=== PATIENT | male | born 1995 | race Caucasian/White ===

== ENCOUNTER 2016-06-02 14:23 | Inpatient (IN) | payer OTHER ==
[~2016-06-02] VITALS: Ht 185.4 cm; Wt 62.1 kg
[~2016-06-02 14:23] MED LIST: ACET-2869 GT; ACET-8331 GT; CRAN450C GT; HYDR-3229 GT; MAGN400S60 PO; METO-460 GT; METO100T98 GT; MULT5SOL7 GT; [UNRECOGNIZED DRUG - CODE] GT
--- NOTE | 2016-06-02 14:24 | NUR ---
Patient RACHANA ACLS accompanied by Shae MANTILLA from [facility], transferred to bed 1. RN evaluating patient at bedside.
[2016-06-02 14:29] VITALS: BP 134/96
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
[2016-06-02] MEDS ORDERED: DEXTROSE 5% IV ONE (15:05)
[2016-06-02] MEDS ORDERED: PIPERACILLIN/TAZOBACTAM 3.375 GM in DEXTROSE 5% 50 ML IV ONE (15:05)
[2016-06-02] MEDS ORDERED: VANCOMYCIN IV ONE (15:05)
[2016-06-02] MEDS ORDERED: ALBUTEROL 0.083% 2.5 MG/3 ML NEBU INH ONE (15:05)
[2016-06-02 15:14] LABS: MEAN CORPUSCULAR HEMOGLOBIN 31 pg (27-31); MEAN CORPUSCULAR HGB CONC 33 g/dL (33-37); MEAN CORPUSCULAR VOLUME 94 fL (80-94); PLATELET COUNT (AUTO) 712 K/uL (140-450); RED BLOOD CELL COUNT(AUTO) 2.56 MIL/uL (4.20-6.10); RED CELL DISTRIBUTION WIDTH 14.5 % (11.6-13.7); WHITE BLOOD COUNT (AUTO) 25.9 K/uL (4.8-10.8)
[2016-06-02 15:16] LABS: BLOOD GAS PCO2 46.4 mmHg (20-50); BLOOD GAS PH 7.397 (7.35-7.45)
[2016-06-02 15:17] LABS: BLOOD GAS BASE EXCESS 2.7 mmol/L (-2.0-2.0); BLOOD GAS HCO3 27.9 mmol/L; BLOOD GAS PO2 53.8 mmHg
[2016-06-02 15:18] LABS: BLOOD GAS O2 SAT% 84.4 % (92.0-98.5)
[2016-06-02 15:24] LABS: ANION GAP 8.4 (8-16); CALCIUM 8.6 mg/dL (8.5-10.1); CARBON DIOXIDE 32.2 mmol/L (21-32); CREATININE 0.6 mg/dL (0.6-1.3); POTASSIUM 4.6 mmol/L (3.5-5.1)
[2016-06-02 15:26] LABS: BAND % (MANUAL) 20 % (0-8); HYPOCHROMASIA 2+; INR 1.2 (0.8-1.2); LYMPHOCYTES % (MANUAL) 9 % (20-46); MONOCYTES % (MANUAL) 6 % (5-12); NEUTROPHILS % (MANUAL) 65 (43-65); PLATELET ESTIMATE INCREASED; PROTHROMBIN TIME 11.9 secs (10.8-13.4)
[2016-06-02 15:31] LABS: ALBUMIN 1.6 g/dL (3.4-5.0); TOTAL BILIRUBIN 0.4 mg/dL (0.0-1.0); TOTAL PROTEIN, SERUM 7.3 g/dL (6.4-8.2)
[2016-06-02 15:32] LABS: LACTIC ACID 1.9 mmol/L (0.4-2.0)
[2016-06-02] MEDS ORDERED: PIPERACILLIN/TAZOBACTAM 3.375 GM VIAL IV ONE ×2 (16:12→22:27)
--- NOTE | 2016-06-02 16:15 | NUR ---
[facility] NO REDNESS AROUND STOMA. TRACH GAUZE AND TRACH TIES ARE NOT SOILED.
--- NOTE | 2016-06-02 16:24 | NUR ---
URINE COLLECTED AND RECEIVED BY LAB
[2016-06-02 16:47] LABS: APPEARANCE,URINE CLEAR (CLEAR); BILIRUBIN,URINE NEGATIVE (NEGATIVE); BLOOD, URINE TRACE-I (NEGATIVE); COLOR,URINE YELLOW (YELLOW); LEUKOCYTE ESTERASE ,URINE NEGATIVE (NEGATIVE); NITRITE, URINE NEGATIVE (NEGATIVE); PROTEIN,URINE TRACE (NEGATIVE); UGLUCOSE NEGATIVE (NEGATIVE); UROBILINOGEN,URINE 0.2 EU/dL (0.2 - 1)
[2016-06-02 16:54] LABS: BACTERIA,URINE FEW /HPF (None Seen); WBC,URINE 0-3 /HPF (0-5)
[2016-06-02 16:55] LABS: CALCIUM OXALATE CRYSTALS,UR 0-10 /HPF (None Seen); SQUAMOUS EPITHELIAL CELL,UR 0-3 /LPF (0-3 (FEW))
[2016-06-02] MEDS ORDERED: VANCOMYCIN 1,000 MG VIAL ONE (17:46)
--- NOTE | 2016-06-02 17:51 | NUR ---
inner cannula clean trach care done
[2016-06-02] MEDS ORDERED: MORPHINE SULFATE 2 MG/ML SYR IVP PRN (19:30)
[2016-06-02] MEDS ORDERED: LORazepam 2 MG/ML VIAL IVP PRN (19:30)
[2016-06-02] MEDS ORDERED: ACETAMINOPHEN 325 MG TAB PO PRN (19:30)
[2016-06-02] MEDS ORDERED: ONDANSETRON 4 MG/2 ML VIAL IVP PRN (19:30)
--- NOTE | 2016-06-02 19:30 | NUR ---
REPORT RECEIVED FROM DAY SHIFT
[2016-06-02] MEDS ORDERED: hydrALAZINE 10 MG TAB GT PRN (19:40)
[2016-06-02] MEDS ORDERED: MAGNESIUM HYDROXIDE 2400 MG/30 ML UDC PO PRN (19:40)
[2016-06-02] MEDS ORDERED: HYDROcodone/APAP 5/325 MG 1 TAB TAB GT PRN (19:40)
[2016-06-02] MEDS ORDERED: ACETAMINOPHEN 325 MG GT PRN (19:40)
[2016-06-02] MEDS ORDERED: VANCOMYCIN PER PHARMACY MC PRN (19:40)
[2016-06-02] MEDS ORDERED: NACL 0.9% 1,000 ML IV ONE ×2 (19:45)
[2016-06-02] MEDS ORDERED: ACETAMINOPHEN 650 MG SUPP RC ONE (20:00)
--- NOTE | 2016-06-02 20:45 | NUR ---
Patient will be admitted to care of DR TRIPP. Admited to ICU. Will go to rooM 7. Belongings list completed. Report to HUMZA DAVIS.
--- NOTE | 2016-06-02 20:50 | NUR ---
Admitted from E. with chief complaint of INCREASE RESPIRATORY DISTRESS. A 21 y/o, Male. RESPOND ONLY TO DEEP PAIN STIMULI. INITIAL ASSESSMENT DONE. PT IS USING HIS ACCESSORY MUSCLE TO BREATHE. ON TRACH TO T-PIECE. PT HAS G-TUBE. PLACEMENT AND PATENCY ARE CONFIRMED. PT. HAS GRAHAM CATHETER AND DRAINING WELL. PT IS CONTRACTED, AND UNABLE TO MOVE EXTREMITIES. PT HAS PRESSURE ULCER ON SACRAL AREA. PLAN OF CARE REVIEWED TO PT AND FAMILY AT BEDSIDE AND VERBALIZED UNDERSTANDING AND NEED TO BE REINFORCED. oriented to call light, bed, phone,television, bathroom, smoking policy, visiting hours, procedures, ID bracelet on. Belongings list checked. WILL CONTINUE TO MONITOR.
--- NOTE | 2016-06-02 21:10 | NUR ---
APPLY COOLING BLANKET TO PT D/T PT HAS A FEVER. TEMP. IS 101.2. AND TOLERATED WELL. WILL CONTINUE TO MONITOR.
[2016-06-02] MEDS: NACL 0.9% 1,000 ML IV SCH (22:05)
[2016-06-02] MEDS: METOPROLOL 50 MG TAB GT SCH (22:05)
[2016-06-02] MEDS: PIPERACILLIN/TAZOBACTAM 3.375 GM in DEXTROSE 5% 50 ML IV SCH ×2 (22:06→22:25)
[2016-06-02] MEDS: LEVOFLOXACIN 750 MG/D5W PREMIX 150 ML IV SCH (22:06)
--- NOTE | 2016-06-02 22:40 | NUR ---
PT IS OFF FROM COOLING BLANKET D/T PT HAS NO LONGER A FEVER WITH TEMP OF 97.6. WILL CONTINUE TO MONITOR
--- NOTE | 2016-06-02 23:43 | NUR ---
Note ruthy in EDM - 06/02/16 at 2344 by JERAMIE Patient will be admitted to care of DR TRIPP. Admited to ICU. Will go to room 7. Belongings list completed. Report to HUMZA DAVIS.
[2016-06-02] MEDS: METOCLOPRAMIDE 10 MG TAB GT SCH (23:49)
[2016-06-02] MEDS: ALBUTEROL 0.083% 2.5 MG/3 ML NEBU IH PRN (23:53)
[2016-06-03] VITALS (12 sets, daily range): BP systolic 132–174; BP diastolic 76–97
[2016-06-03] MEDS ORDERED: methylPREDNISolone SS 40 MG/ML VIAL IVP PRN (00:15)
[2016-06-03] MEDS ORDERED: VANCOMYCIN 1,000 MG VIAL ONE (01:23)
[2016-06-03] MEDS ORDERED: VANCOMYCIN 750 MG in DEXTROSE 5% 250 ML IV SCH (02:00)
--- NOTE | 2016-06-03 03:00 | NUR ---
PT STILL USING HIS ACCESSORY MUSCLE IN BREATHING. CALLED DR. BURNETT AND NOTIFIED AND NEW ORDERS WERE GIVEN (PLS. SEE CPOE). NEW ORDERS NOTED AND CARRIED OUT. WILL CONTINUE TO MONITOR.
[2016-06-03] MEDS: NACL 0.9% 1,000 ML IV SCH ×3 (03:29→19:29)
[2016-06-03] MEDS: PIPERACILLIN/TAZOBACTAM 3.375 GM in DEXTROSE 5% 50 ML IV SCH (04:19)
--- NOTE | 2016-06-03 05:00 | NUR ---
AM CARE RENDERED. BED LINEN CHANGED. REPOSITIONED PATIENT. KEPT CLEAN AND DRY. CALL LIGHT WITHIN REACH. WILL CONTINUE TO MONITOR.
[2016-06-03] MEDS: METOCLOPRAMIDE 10 MG TAB GT SCH ×4 (06:01→23:53)
--- NOTE | 2016-06-03 07:14 | NUR ---
PT HAS NO S/S OF ANY DISCOMFORT. PLAN OF CARE ENDORSED TO HARDEEP DAVIS AT BEDSIDE FOR CONTINUITY OF CARE
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
[2016-06-03 07:30] LABS: ALBUMIN 1.5 g/dL (3.4-5.0); CALCIUM 8.8 mg/dL (8.5-10.1); CARBON DIOXIDE 27.8 mmol/L (21-32); CREATININE 0.5 mg/dL (0.6-1.3); MAGNESIUM 1.9 mg/dL (1.8-2.4); POTASSIUM 4.8 mmol/L (3.5-5.1); TOTAL BILIRUBIN 0.3 mg/dL (0.0-1.0); TOTAL PROTEIN, SERUM 7.4 g/dL (6.4-8.2)
[2016-06-03] MEDS: ALBUTEROL 0.083% 2.5 MG/3 ML NEBU IH PRN ×2 (07:42→12:48)
[2016-06-03 07:43] LABS: HEMATOCRIT 24.5 % (36-52); HEMOGLOBIN 8.1 g/dL (12.0-18.0); MEAN CORPUSCULAR HEMOGLOBIN 31 pg (27-31); MEAN CORPUSCULAR HGB CONC 33 g/dL (33-37); MEAN CORPUSCULAR VOLUME 94 fL (80-94); PLATELET COUNT (AUTO) 735 K/uL (140-450); RED BLOOD CELL COUNT(AUTO) 2.61 MIL/uL (4.20-6.10); RED CELL DISTRIBUTION WIDTH 14.9 % (11.6-13.7); WHITE BLOOD COUNT (AUTO) 24.4 K/uL (4.8-10.8)
[2016-06-03 08:00] LABS: BAND % (MANUAL) 7 % (0-8); BASOPHILS % (MANUAL) 0 % (0-2); EOSINOPHILS % (MANUAL) 1 % (0-4); LYMPHOCYTES % (MANUAL) 2 % (20-46); MONOCYTES % (MANUAL) 2 % (5-12); NEUTROPHILS % (MANUAL) 88 (43-65); PLATELET ESTIMATE INCREASED
--- NOTE | 2016-06-03 08:00 | NUR ---
PT TURNED AND REPOSITIONED. ORAL CARE GIVEN.
[2016-06-03] MEDS: METOPROLOL 50 MG TAB GT SCH ×2 (09:44→21:16)
--- NOTE | 2016-06-03 10:00 | NUR ---
PT TURNED AND REPOSITIONED.
[2016-06-03] MEDS: VANCOMYCIN 1GM/DEXT 5% PREMIX 200 ML IV SCH ×2 (10:07→17:41)
[2016-06-03] MEDS: ENOXAPARIN 40 MG/0.4 ML SYR SUBQ SCH (10:10)
[2016-06-03] MEDS: ASCORBIC ACID 500 MG TAB GT SCH (10:11)
[2016-06-03] MEDS: MULTIVITAMIN 5 ML ORASYR GT SCH (10:12)
--- NOTE | 2016-06-03 12:00 | NUR ---
PT TURNED AND REPOSITIONED. ORAL CARE GIVEN WITH VAP KIT.
[2016-06-03] MEDS: PIPER/TAZO 3.375GM/D5W PREMIX 50 ML IV SCH ×2 (12:26→20:25)
--- NOTE | 2016-06-03 13:11 | NUR ---
DECREASED FI02 TO .40 RN JOHN AWARE
--- NOTE | 2016-06-03 13:40 | NUR ---
CALLED PT'S MOTHER. PER FAMILY MEMBER THAT ANSWERED PHONE, SHE IS ON HER WAY TO THE HOSPITAL. WHEN PT'S MOTHER ARRIVED TO HOSPITAL, RN AND TESTER [employer] EXPLAINED TO HER THAT DR WANTS A CT CHEST WITH CONTRAST FOR PNA. PT'S MOTHER VERBALIZED UNDERSTANDING AND SIGNED CONSENT.
--- NOTE | 2016-06-03 14:00 | NUR ---
PT OFF FLOOR FOR CT. Addendum: 06/03/16 at 1618 by Maureen Morin RN TIME WAS 1430
--- NOTE | 2016-06-03 15:00 | NUR ---
PT BACK FROM CT. RECONNECTED TO BEDSIDE MONITOR. RT AT BEDSIDE.
--- NOTE | 2016-06-03 15:18 | NUR ---
[address] ON 1LPM T- BAR TRANSPORTED BACK TO ICU 7 T-BAR 10LPM O2 TOOK PT OFF COOL AERSOL AT THIS TIME PTS SECRETIONS BUILDING UP RN AWARE
--- NOTE | 2016-06-03 16:00 | NUR ---
LINEN CHANGED, BED BATH GIVEN. PT TURNED AND REPOSITIONED FOR COMFORT. ORAL CARE GIVEN.
--- NOTE | 2016-06-03 17:22 | NUR ---
DR. CORLEY NOTIFIED OF CT CHEST RESULTS. ORDERS RECEIVED FOR DR. DIAMOND CONSULTATION FOR CHEST TUBE INSERTION. PAGING DR. DIAMOND.
--- NOTE | 2016-06-03 17:23 | NUR ---
PAGED DR. DIAMOND.
--- NOTE | 2016-06-03 17:30 | NUR ---
DR DIAMOND PAGED BY RYAN SOLIMAN.
--- NOTE | 2016-06-03 17:55 | NUR ---
INNER CANULA CLEANED AND REPLACED TRACH CARE DONE
--- NOTE | 2016-06-03 17:56 | NUR ---
RECEIVED CALLBACK FROM DR. DIAMOND. READ CT CHEST WITH CONTRAST RESULTS TO DR DIAMOND AND UPDATED MD THAT PATIENT IS IN RESPIRATORY DISTRESS, DESATS TO 70S, AND HAS INCREASED WORK OF BREATHING. PER DR. DIAMOND, HE WILL NOT BE ABLE TO DO SURGERY RIGHT NOW. EITHER LATE TONIGHT OR TOMORROW.
--- NOTE | 2016-06-03 18:00 | NUR ---
CALLED PT'S MOTHER FOR VERBAL CONSENT OF LEFT CHEST TUBE INSERTION. TRANSLATED IN BELARUSIAN BY SVETLANA HERNANDEZ MENAGERIE SUPERINTENDENT. VERBAL CONSENT WITNESSED BY NIALL RN.
--- NOTE | 2016-06-03 18:30 | NUR ---
PT TURNED AND REPOSITIONED FOR COMFORT. WILL CONTINUE TO MONITOR.
--- NOTE | 2016-06-03 19:15 | NUR ---
RECEIVED REPORT FROM DAY SHIFT RYAN MEIER. FULL CODE, NO CLEANER OPERATOR. TRACHEOSTOMY TO T-PIECE AT 10LPM. PERIPHERAL IV G20 ON RIGHT ARM. G-TUBE INTACT TO START TUBE FEEDING. GRAHAM CATHETER DRAINING TO YELLOWISH URINE OUTPUT. Addendum: 06/04/16 at 0024 by Francesca Joyce RN TYPO-ERROR - RECEIVED PATIENT ON CLEANER OPERATOR. IVF RUNNING NS 125 ML/HR. WITH ABDOMINAL OLD SCAR. WITH SACRAL ULCER OPENED TO AIR. 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 SKIN DIAPHORETIC. UNABLE TO FOLLOW COMMANDS. RESPONDS TO DEEP PAIN.
--- NOTE | 2016-06-03 19:15 | NUR ---
REPORT GIVEN TO RYAN PIPER.
--- NOTE | 2016-06-03 19:21 | NUR ---
PT'S MOTHER AT BEDSIDE SIGNED FOR CONSENT OF LEFT CHEST TUBE INSERTION.
--- NOTE | 2016-06-03 20:00 | NUR ---
VAP ORAL KIT GIVEN ASSISTED BY SUCTIONING. REPOSITIONED PATIENT.
--- NOTE | 2016-06-03 21:00 | NUR ---
GASTROSTOMY TUBE FLUSHED AND PATENT. TUBE FEEDING OF NUTREN PULMONARY AT 25 ML/HR, WATER FLUSH 50 ML Q6H PER GASTROSTOMY TUBE STARTED ORDERED.
[2016-06-03] MEDS: LEVOFLOXACIN 750 MG/D5W PREMIX 150 ML IV SCH (21:16)
--- NOTE | 2016-06-03 22:00 | NUR ---
REPOSITIONED PATIENT. NO SIGNS OF DISCOMFORT AT THIS TIME. BED IN LOW POSITION.
--- NOTE | 2016-06-03 23:59 | NUR ---
VAP ORAL KIT GIVEN ASSISTED WITH SUCTIONING. REPOSITIONED PATIENT.
[2016-06-04] VITALS (12 sets, daily range): BP systolic 118–159; BP diastolic 68–99
[2016-06-04] MEDS: VANCOMYCIN 1GM/DEXT 5% PREMIX 200 ML IV SCH ×3 (01:06→18:50)
--- NOTE | 2016-06-04 01:50 | NUR ---
REPOSITIONED PATIENT. NO RESIDUAL VIA GASTROSTOMY TUBE. BED IN LOW POSITION.
--- NOTE | 2016-06-04 03:58 | NUR ---
ORAL CARE GIVEN WITH VAP ORAL KIT ASSISTED WITH SUCTIONING. REPOSITIONED PATIENT. SUCTIONED SECRETIONS. BED IN LOW POSITION. ASPIRATION PRECAUTION.
[2016-06-04] MEDS: PIPER/TAZO 3.375GM/D5W PREMIX 50 ML IV SCH ×3 (04:10→20:53)
[2016-06-04] MEDS: ALBUTEROL 0.083% 2.5 MG/3 ML NEBU IH PRN ×2 (04:21→08:32)
--- NOTE | 2016-06-04 05:00 | NUR ---
TRACH CARE DONE. INCREASED TO 12L 60% DUE TO DESAT.
--- NOTE | 2016-06-04 05:00 | NUR ---
OXYGEN DESATURATION NOTED TO 70% WHILE DOING TRACH CARE BY THE RT ON THE BEDSIDE. OXYGEN INCREASED TO 12LPM AEROSOL.
--- NOTE | 2016-06-04 05:00 | NUR ---
TUBE FEEDING HELD ORDERED.
[2016-06-04 05:51] LABS: HEMATOCRIT 22.7 % (36-52); HEMOGLOBIN 7.7 g/dL (12.0-18.0); MEAN CORPUSCULAR HEMOGLOBIN 31 pg (27-31); MEAN CORPUSCULAR HGB CONC 34 g/dL (33-37); MEAN CORPUSCULAR VOLUME 93 fL (80-94); RED BLOOD CELL COUNT(AUTO) 2.45 MIL/uL (4.20-6.10); RED CELL DISTRIBUTION WIDTH 14.9 % (11.6-13.7)
[2016-06-04 05:57] LABS: WHITE BLOOD COUNT (AUTO) 35.3 K/uL (4.8-10.8)
[2016-06-04 05:58] LABS: PLATELET COUNT (AUTO) 832 K/uL (140-450)
--- NOTE | 2016-06-04 06:00 | NUR ---
AM CARE GIVEN. BATHING ASSISTED WITH BOTTLE FILLER DEE. ORAL CARE GIVEN. ALL LINENS AND GOWN CHANGED.
[2016-06-04 06:11] LABS: ANION GAP 8.1 (8-16); CALCIUM 9.2 mg/dL (8.5-10.1); CARBON DIOXIDE 31.4 mmol/L (21-32); CREATININE 0.6 mg/dL (0.6-1.3); POTASSIUM 4.5 mmol/L (3.5-5.1)
--- NOTE | 2016-06-04 06:16 | NUR ---
DR CORLEY NOTIFIED WBC 35.5,PLAT 832 , SEE ORDER ,HE WANT TO DO BRONCHOSCOPY TODAY AT 1000- 1100 RT "MARTI " NOTIFIED.
[2016-06-04] MEDS: METOCLOPRAMIDE 10 MG TAB GT SCH ×3 (06:42→18:47)
[2016-06-04 06:54] LABS: BAND % (MANUAL) 6 % (0-8); LYMPHOCYTES % (MANUAL) 7 % (20-46); MONOCYTES % (MANUAL) 4 % (5-12); NEUTROPHILS % (MANUAL) 83 (43-65)
[2016-06-04 06:55] LABS: HYPOCHROMASIA 1+; PLATELET ESTIMATE INCREASED; TOXIC GRANULATION 1+
--- NOTE | 2016-06-04 07:10 | NUR ---
PATIENT REPORT GIVEN TO DAY SHIFT RN JOURDAN.
--- NOTE | 2016-06-04 07:30 | NUR ---
RECEIVE REPORT VERONIQUE RN PT HAS TRACH TO T PEICE O2 SAT 99%.SKIN JUAN WARM TO TOUCH IV FLUID HAS# 29 ON RT ARM , GT FEEDING ON HOLD DUE TO PROCEDURE , GRAHAM CATH DRAIN OMAR URINE WITH SEDAMEN.
--- NOTE | 2016-06-04 07:30 | NUR ---
ENDORSED CARE TO RYAN PIPER. PT IN STABLE CONDITION.
[2016-06-04] MEDS: ASCORBIC ACID 500 MG TAB GT SCH (08:42)
[2016-06-04] MEDS: MULTIVITAMIN 5 ML ORASYR GT SCH (08:42)
[2016-06-04] MEDS: METOPROLOL 50 MG TAB GT SCH ×2 (08:42→20:59)
--- NOTE | 2016-06-04 08:55 | NUR ---
PATIENT HAS BEEN SCREENED AND CATEGORIZED HIGH NUTRITION RISK. PATIENT WILL BE SEEN WITHIN 1-2 DAYS OF ADMISSION. 06/03/16 - 06/04/16 HARSHAD MALDONADO MBA, RD
[2016-06-04] MEDS: ENOXAPARIN 40 MG/0.4 ML SYR SUBQ SCH (09:00)
--- NOTE | 2016-06-04 09:30 | NUR ---
THE CHEST TUBE CONNECTED TO OCEAN SUCTION [facility] THE WATER SEAL CHEST DRAINAGE ,NOT CONNECT TO SUCTION AT THE TIME ONLY TO GRAVITY DRAINAGE N
--- NOTE | 2016-06-04 09:30 | NUR ---
DR. Jensen DIAMOND INSERTED CHEST TUBE ON LEFT SIDE OF THE CHEST WITH ESTIMATE BLOOD LOST ABOUT 5ML. THE CHEST TUBE
[2016-06-04] MEDS ORDERED: LIDOCAINE 1% 50 ML ONE (09:59)
--- NOTE | 2016-06-04 10:03 | NUR ---
RESPONDED TO ICU-7 STAT Jensen GARCIA, ALMAZ; DEVIN WILKERSONP
--- NOTE | 2016-06-04 10:05 | NUR ---
POST LEFT CHEST TUBE INSERTION BY DR. DIAMOND PATIENT DESATURATION TO 60'S AMBU BAG TO TRACH X 10 MINS WITH SUPPLEMENTAL OXYGEN AT 100% BAG DEPRESSION EVERY 6 SECONDS INTERMITTENT SUCTION X 2 FOR SMALL TO MODERATE THIN PALE YELLOW SECRETIONS SATURATION INCREASING TO 96%-97% DEVIN CHEWP AND DEVIN WILKERSONP AT BEDSIDE
--- NOTE | 2016-06-04 10:20 | NUR ---
RECEIVED CALL FROM LAB PT HAS MRSA IN HIS NARES DR CORLEY NOTIFIED.
[2016-06-04] MEDS ORDERED: LIDOCAINE 1% 500 MG/50 ML VIAL INJ SCH (10:30)
--- NOTE | 2016-06-04 10:30 | NUR ---
THE CHEST TUBE DRAIN 2000 ML OF YELLOW FLUID WITH THIN PINK WITH IN ONE HOUR .
--- NOTE | 2016-06-04 10:40 | NUR ---
CHANGED TO 2ND WATER SEAL CHEST DRAINAGE CONNECTED TO LOW SUCTION.
--- NOTE | 2016-06-04 11:00 | NUR ---
BRONCHOSCOPY DONE AT BED SIDE BY DR CORLEY DID NOT HAVE GOOD RESULT.
--- NOTE | 2016-06-04 11:01 | NUR ---
06/04/16 RD INITIAL ASSESSMENT COMPLETED PLEASE REFER TO NUTRITION ASSESSMENT UNDER CARE ACTIVITY FOR ESTIMATED NUTRITIONAL NEEDS. RD RECOMMENDATIONS: 1- WHEN PT IS MEDICALLY CLEARED AGAIN FOR TF, RECOMMEND NUTREN PULMONARY @60MLS/HR (PROVIDES 2160KCALS, 98G PROTEIN AND MEETS 100% OF NEEDS). START TF @30MLS/HR AND ADVANCE, TOLERATED, BY 10MLS/HR Q8HRS TO REACH GOAL RATE OF 60MLS/HR. 2- RD F/U 2-3 DAYS; HIGH RISK HARSHAD MALDONADO MBA, RD
[2016-06-04] MEDS ORDERED: fentaNYL 0.05 MG/ML VIAL IVP SCH (11:10)
--- NOTE | 2016-06-04 11:30 | NUR ---
BRONCHOSCOPY ASSIST WITH DR. SARAN BURNETT RCP'S Jensen GARCIA RCP AND Ruperto BARAJAS, AT BEDSIDE
--- NOTE | 2016-06-04 12:00 | NUR ---
VISIT BY AUNT AND UNCLE AT BED SIDE.
[2016-06-04] MEDS: NACL 0.9% 1,000 ML IV SCH ×3 (13:30→19:29)
[2016-06-04] MEDS: ALBUTEROL SULFATE/IPRATROPIU 3 ML SOL IH SCH ×2 (13:31→19:19)
--- NOTE | 2016-06-04 13:32 | NUR ---
AWAKE COOL AEROSOL TO TRACH AT 60%/12/PM ON AND FUNCTIONING WELL BREATH SOUNDS COARSE RHONCHI BILATERAL WITH GOOD CHEST RISE PRE AND POST OXYGENATION FOR SUCTIONING DEEP TRACHEAL SUCTION FOR LARGE THIN PALE YELLOW SECRETIONS AIRWAY PATENT HHN THERAPY GIVEN ORDERED TOLERATED WELL WITHOUT INCIDENT
[2016-06-04] MEDS ORDERED: MUPIROCIN 2% OINT 22 GM TUBE TP ONE (15:10)
[2016-06-04] MEDS: CHLORHEXADINE GLUC 2% CLOTH TP SCH (15:30)
[2016-06-04 17:15] LABS: APPEARANCE,SPUN,BODY FLUID HAZY (CLEAR); APPEARANCE,UNSPUN,BODY FLUID CLOUDY (CLEAR); COLOR,BODY FLUID YELLOW (LT YELLOW); GLUCOSE,BODY FLUID 0 mg/dL; MONONUCLEAR, BODY FLUID 10 %; POLYNUCLEAR, BODY FLUID 90 %; RBC, BODY FLUID 1064 /cu. mm.; SPECIMENTYPE,BODY FLUID PLEURAL; TOTAL VOLUME,BODY FLUID 2000 mL; WBC, BODY FLUID 878 /cu. mm.
[2016-06-04 17:16] LABS: GLUCOSE,PLEURAL FLUID 0
[2016-06-04 17:17] LABS: TOTAL PROTEIN,PLEURAL FLUID 1.4
[2016-06-04 17:19] LABS: PH,PLEURAL FLUID 7.5
--- NOTE | 2016-06-04 19:25 | NUR ---
RECEIVED REPORT FROM DAY SHIFT RN JOURDAN. ON KNIFEMAN, FULL CODE. AROUSABLE TO DEEP PAIN, UNABLE TO FOLLOW COMMANDS. AEROSOL TO TRACH AT 40% PER GERALDINE RT ON THE BEDSIDE. PERIPHERAL IV ON RIGHT ARM G20 RUNNING IVF OF NS AT 125ML/HR VIA IV PUMP. CHEST TUBE IN PLACE ON LOW INTERMITTENT SUCTION. GASTROSTOMY TUBE INTACT, NO RESIDUAL, RUNNING TUBE FEEDING OF NUTREN PULMONARY AT 25ML/HR, WATER FLUSH 50 ML Q6H VIA FEEDING PUMP. GRAHAM CATHETER DRAINING TO YELLOWISH URINE OUTPUT. WITH ABDOMINAL SCAR HEALED. WITH SACRAL ULCER STAGE 2 OPENED TO AIR, NO DRESSING. 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 SCD ON BOTH LEGS.
--- NOTE | 2016-06-04 19:25 | NUR ---
CHEST TUBE INPLACE. REPORT GIVE TO VERONIQUE DAVIS.
--- NOTE | 2016-06-04 19:40 | NUR ---
ORDERED FOR CYTOLOGY OF CHEST TUBE DRAIN SPECIMEN (WHOLE CONTAINER) LABELED AND SENT TO LAB.
--- NOTE | 2016-06-04 20:00 | NUR ---
ORAL CARE GIVEN WITH VAP ORAL KIT ASSISTED WITH SUCTIONING. REPOSITIONED PATIENT.
[2016-06-04] MEDS: LEVOFLOXACIN 750 MG/D5W PREMIX 150 ML IV SCH (21:27)
--- NOTE | 2016-06-04 22:00 | NUR ---
REPOSITIONED PATIENT. CHEST TUBE INTACT. NO SIGNS OF RESPIRATORY DISTRESS OR DISCOMFORT AT THIS TIME. BED IN LOW POSITION. CALL LIGHT AT BEDSIDE.
[2016-06-05] VITALS (12 sets, daily range): BP systolic 110–134; BP diastolic 58–79
[2016-06-05] MEDS: METOCLOPRAMIDE 10 MG TAB GT SCH ×5 (00:14→23:51)
--- NOTE | 2016-06-05 00:26 | NUR ---
REPOSITIONED PATIENT. CHEST TUBE IN PLACE. ORAL CARE GIVEN WITH VAP ORAL KIT ASSISTED WITH SUCTIONING. NO SIGNS OF DISTRESS AT THIS TIME.
[2016-06-05] MEDS: ALBUTEROL SULFATE/IPRATROPIU 3 ML SOL IH SCH ×4 (01:13→19:41)
--- NOTE | 2016-06-05 01:19 | NUR ---
LOWERED FIO2 TO 30%. SATS 98%
--- NOTE | 2016-06-05 02:11 | NUR ---
TRACH TO AEROSOL AT 30%. NO SIGNS OF DISTRESS OR DISCOMFORT AT THIS TIME. REPOSITIONED PATIENT.
[2016-06-05] MEDS: VANCOMYCIN 1GM/DEXT 5% PREMIX 200 ML IV SCH ×3 (02:26→17:42)
--- NOTE | 2016-06-05 04:11 | NUR ---
ORAL CARE GIVEN WITH VAP ORAL KIT ASSISTED WITH SUCTIONING. REPOSITIONED PATIENT. CHEST TUBE IN PLACE INTACT.
[2016-06-05] MEDS: PIPER/TAZO 3.375GM/D5W PREMIX 50 ML IV SCH ×3 (04:47→21:03)
[2016-06-05 05:13] LABS: HEMATOCRIT 24.7 % (36-52); HEMOGLOBIN 8.1 g/dL (12.0-18.0); MEAN CORPUSCULAR HEMOGLOBIN 30 pg (27-31); MEAN CORPUSCULAR HGB CONC 33 g/dL (33-37); MEAN CORPUSCULAR VOLUME 92 fL (80-94); RED BLOOD CELL COUNT(AUTO) 2.68 MIL/uL (4.20-6.10); RED CELL DISTRIBUTION WIDTH 14.6 % (11.6-13.7); WHITE BLOOD COUNT (AUTO) 18.6 K/uL (4.8-10.8)
[2016-06-05 05:35] LABS: PLATELET COUNT (AUTO) 849 K/uL (140-450)
--- NOTE | 2016-06-05 06:00 | NUR ---
AM CARE GIVEN ASSISTED WITH ANGLE FURNACEMAN DEE. GOWNS AND LINEN CHANGED. INTAKE AND OUTPUT DONE. CHEST TUBE IN PLACE AND INTACT.
[2016-06-05 06:19] LABS: CALCIUM 8.2 mg/dL (8.5-10.1); CARBON DIOXIDE 28.7 mmol/L (21-32); CREATININE 0.6 mg/dL (0.6-1.3); POTASSIUM 3.7 mmol/L (3.5-5.1)
[2016-06-05 06:31] LABS: MAGNESIUM 1.7 mg/dL (1.8-2.4)
[2016-06-05 07:10] LABS: BAND % (MANUAL) 2 % (0-8); LYMPHOCYTES % (MANUAL) 9 % (20-46); MONOCYTES % (MANUAL) 7 % (5-12); NEUTROPHILS % (MANUAL) 83 (43-65)
[2016-06-05] MEDS ORDERED: ALBUTEROL 0.083% 2.5 MG/3 ML NEBU INH PRN (07:10)
[2016-06-05] MEDS ORDERED: ACETAMINOPHEN 325 MG TAB GT PRN (07:10)
[2016-06-05 07:11] LABS: PLATELET ESTIMATE INCREASED
[2016-06-05] MEDS ORDERED: MAGNESIUM HYDROXIDE 2400 MG/30 ML UDC GT PRN (07:11)
[2016-06-05 07:13] LABS: HYPOCHROMASIA 1+; POLYCHROMASIA 1+
--- NOTE | 2016-06-05 07:20 | NUR ---
PATIENT REPORT GIVEN TO DAY SHIFT RN HARDEEP.
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
--- NOTE | 2016-06-05 07:49 | NUR ---
RECEIVED ON A COOL AEROSOL AT 30%/6 LPM ON AND FUNCTIONING WELL TO A SHILEY 6 DC T AIRWAY SECURED WITH A ROYAL TRACH TIE RECHECKED CUFF PRESSURE
[2016-06-05] MEDS: MULTIVITAMIN 5 ML ORASYR GT SCH (09:24)
[2016-06-05] MEDS: ASCORBIC ACID 500 MG TAB GT SCH (09:24)
[2016-06-05] MEDS: METOPROLOL 50 MG TAB GT SCH ×2 (09:25→21:02)
[2016-06-05] MEDS: ENOXAPARIN 40 MG/0.4 ML SYR SUBQ SCH (09:27)
[2016-06-05] MEDS: MUPIROCIN 2% OINT 22 GM TUBE TP SCH (09:33)
--- NOTE | 2016-06-05 10:20 | NUR ---
PT'S MOTHER AT BEDSIDE. PT TURNED AND REPOSITIONED FOR COMFORT. WILL CONTINUE TO MONITOR.
--- NOTE | 2016-06-05 10:52 | NUR ---
DR. HORVATH AT BEDSIDE ASSESSING AND TALKING TO PATIENT. UPDATED MD ON CURRENT PATIENT CONDITION. WILL FOLLOW UP WITH ORDERS.
--- NOTE | 2016-06-05 11:14 | NUR ---
ASSISTED STORE ADMINISTRATORLEENA, AT BEDSIDE.
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
--- NOTE | 2016-06-05 11:23 | NUR ---
DR CRUZ INFORMED PATIENT HAS PSEUDOMONAS AERGINOSA MDRO IN SPUTUM, SENSITIVE TO ZOSYN. PT IS ON ZOSYN. ALSO MG IS 1.7. RECEIVED ORDERS. WILL FOLLOW UP.
[2016-06-05] MEDS: NACL 0.9% 1,000 ML IV SCH ×3 (11:29→19:23)
[2016-06-05] MEDS ORDERED: MAG SULF 2000 MG/WATER PREMIX 50 ML IV SCH (11:58)
--- NOTE | 2016-06-05 13:30 | NUR ---
DR CRUZ AT NURSING STATION. UPDATED MD ON PATIENT STATUS. PER MD, TURN OFF CHEST TUBE SUCTION AND GET CULTURE ON PLEURAL FLUID. MD WILL HAVE ID ON CASE ALSO. WILL FOLLOW UP ON ORDERS.
--- NOTE | 2016-06-05 14:25 | NUR ---
AWAKE STABLE BREATH SOUNDS DECREASED RIGHT SIDE RHONCHI LEFT SIDE GOOD CHEST RISE HYPEROXYGENATION PRE AND POST SUCTIONING DEEP TRACHEAL SUCTION FOR MODERATE THICK YELLOW SECRETIONS AIRWAY PATENT COOL AEROSOL TO TRACH ON AND FUNCTIONING WELL HHN THERAPY GIVEN ORDERED TOLERATED WELL WITHOUT INCIDENT
--- NOTE | 2016-06-05 14:25 | NUR ---
20CC PLEURAL FLUID ASPIRATED FOR CULTURE. WILL CONTINUE TO MONITOR.
[2016-06-05] MEDS: CHLORHEXADINE GLUC 2% CLOTH TP SCH (15:14)
--- NOTE | 2016-06-05 16:00 | NUR ---
PT TURNED AND REPOSITIONED FOR COMFORT. WILL CONTINUE TO MONITOR.
[2016-06-05] MEDS ORDERED: Z-GUARD PASTE TP PRN (16:10)
--- NOTE | 2016-06-05 19:05 | NUR ---
REPORT GIVEN TO RYAN CUADRA.
--- NOTE | 2016-06-05 19:25 | NUR ---
RECEIVED REPORT FROM DAY NURSE RYAN MEIER. PT IS ABLE TO OPEN EYES SPONTANEOUSLY BUT IS UNABLE TO FOLLOW COMMANDS. PT IS TRACH TO T-PIECE WITH 30% COOL AEROSOL. PT IS CURRENT SATURATING 96% ON SPO2 MONITOR. PT HAS LEFT CHEST TUBE DRAINING STRAW COLORED FLUID VIA GRAVITY AT THIS TIME. SEASONAL GREENERY BUNDLER SHOWS ST AT THIS TIME. PT HAS RIGHT FA #20 RUNNING NS AT 125ML/HR WITH GOOD BLOOD RETURN NOTED. PT ON G-TUBE FEEDING WITH NUTREN PULMONARY AT 60ML/HR WITH 5ML GASTRIC RESIDUAL NOTED. PT HAS GRAHAM CATHETER IN PLACE DRAINING CLOUDY YELLOW URINE VIA GRAVITY AT THIS TIME. SKIN IS NON-INTACT, PRESSURE WOUND NOTED ON SACRAL AREA COVERED BY FOAM DRESSING. PT EXTREMITIES ARE CONTRACTED, BEDBOUND, BED IN LOW POSITION, HOB UP. SCDS IN PLACE. CONTACT PRECAUTIONS MAINTAINED. WILL CONTINUE TO CLOSELY MONITOR.
--- NOTE | 2016-06-05 19:50 | NUR ---
PT CHEST TUBE CHANGED. 3000 ML OUTPUT FROM OLD CHEST TUBE. PT TURNED AND REPOSITIONED. VAP ORAL KIT PROVIDED. NO SOB NOTED AT THIS TIME. WILL CONTINUE TO CLOSELY MONITOR.
--- NOTE | 2016-06-05 20:30 | NUR ---
STERILE WATER CHANGED. PT SAT IS 96% HR 131. NO DISTRESS OR SOB NOTED. WILL CONTINUE TO MONITOR.
--- NOTE | 2016-06-05 21:20 | NUR ---
MOTHER IS ON UNIT AT PATIENT BEDSIDE.
--- NOTE | 2016-06-05 21:30 | NUR ---
DR PHOENIX ON THE UNIT TO SEE PATIENT AT BEDSIDE.
[2016-06-05] MEDS: PIPERACILLIN/TAZOBACTAM 4.5 GM in DEXTROSE 5% 100 ML IV SCH (23:51)
[2016-06-06] VITALS (13 sets, daily range): BP systolic 110–139; BP diastolic 60–85
--- NOTE | 2016-06-06 00:10 | NUR ---
PT TURNED, REPOSITIONED, OFFLOADED PRESSURES. STARTED NEW BAG OF ZOSYN. VAP ORAL KIT PROVIDED. NO SOB NOTED AT THIS TIME. WILL CONTINUE TO MONITOR CLOSELY.
[2016-06-06] MEDS ORDERED: Z-GUARD PASTE TP SCH (01:00)
[2016-06-06] MEDS: ALBUTEROL SULFATE/IPRATROPIU 3 ML SOL IH SCH ×4 (01:03→20:16)
--- NOTE | 2016-06-06 01:13 | NUR ---
HHN TX GIVEN. SXN'D MOD AMT OF THICK WHITE SECRETIONS. NO SOB OR DISTRESS NOTED . WILL CONTINUE TO MONITOR.
[2016-06-06] MEDS: Z-GUARD PASTE TP SCH ×2 (01:15→13:45)
[2016-06-06] MEDS: VANCOMYCIN 1GM/DEXT 5% PREMIX 200 ML IV SCH ×3 (02:11→18:32)
--- NOTE | 2016-06-06 02:54 | NUR ---
PT SUCTIONED. NO SOB NOTED AT THIS TIME. CONTACT PRECAUTIONS STILL MAINTAINED, SAFETY PRECAUTIONS STILL MAINTAINED. WILL CONTINUE TO CLOSELY MONITOR.
[2016-06-06] MEDS: NACL 0.9% 1,000 ML IV SCH ×3 (04:41→16:13)
--- NOTE | 2016-06-06 05:05 | NUR ---
MORNING CARE RENDERED. PATIENT BATHED, LINEN CHANGED. NO S/S OF RESP DISTRESS NOTED AT THIS TIME. WILL CONTINUE TO MONITOR.
[2016-06-06 05:26] LABS: ANION GAP 11.6 (8-16); CALCIUM 7.9 mg/dL (8.5-10.1); CARBON DIOXIDE 28.3 mmol/L (21-32); CREATININE 0.5 mg/dL (0.6-1.3); POTASSIUM 3.9 mmol/L (3.5-5.1)
--- NOTE | 2016-06-06 05:27 | NUR ---
TRACH CARE DONE. TRACH IS IN PLACE AND SECURED. NO SOB OR DISTRESS NOTED. WILL CONTINUE TO MONITOR.
[2016-06-06 05:32] LABS: MAGNESIUM 2.2 mg/dL (1.8-2.4); PHOSPHORUS 3.2 mg/dL (2.5-4.9)
[2016-06-06 05:48] LABS: HEMATOCRIT 25.4 % (36-52); HEMOGLOBIN 8.6 g/dL (12.0-18.0); MEAN CORPUSCULAR HEMOGLOBIN 31 pg (27-31); MEAN CORPUSCULAR HGB CONC 34 g/dL (33-37); MEAN CORPUSCULAR VOLUME 91 fL (80-94); RED CELL DISTRIBUTION WIDTH 15.1 % (11.6-13.7); WHITE BLOOD COUNT (AUTO) 20.4 K/uL (4.8-10.8)
--- NOTE | 2016-06-06 05:55 | NUR ---
CRITICAL LAB RESULTS RECEIVED; PAGED DR. MCCORMACK TO REPORT CRITICAL LAB RESULTS; HE RETURNED MY PAGE AFTER THE 2ND TIME OF PAGING HIM; NO NEW ORDERS GIVEN.
[2016-06-06 06:00] LABS: PLATELET COUNT (AUTO) 1062 K/uL (140-450)
[2016-06-06] MEDS: METOCLOPRAMIDE 10 MG TAB GT SCH ×4 (06:18→23:54)
[2016-06-06] MEDS: PIPERACILLIN/TAZOBACTAM 4.5 GM in DEXTROSE 5% 100 ML IV SCH ×4 (06:19→23:54)
--- NOTE | 2016-06-06 06:45 | NUR ---
NO BM SINCE PATIENT'S ADMISSION (06/02/16); PRN MILK OF MAGNESIA GIVEN THRU GT.
[2016-06-06 06:58] LABS: BAND % (MANUAL) 2 % (0-8); NEUTROPHILS % (MANUAL) 82 (43-65)
[2016-06-06 06:59] LABS: EOSINOPHILS % (MANUAL) 2 % (0-4); HYPOCHROMASIA 1+; LYMPHOCYTES % (MANUAL) 8 % (20-46); MONOCYTES % (MANUAL) 6 % (5-12); PLATELET ESTIMATE INCREASED; POLYCHROMASIA 1+
--- NOTE | 2016-06-06 07:16 | NUR ---
ENDORSED TO AM SHIFT RN RULA FOR CONTINUITY OF CARE.
--- NOTE | 2016-06-06 07:20 | NUR ---
RECEIVED REPORT FROM CHARGE NURSE AT BEDSIDE. PT IS NON VERBAL, OBTUNDED. ABLE TO TRACK EYE MOVEMENT. PT IS TRACH TO VENT DEPENDENT WITH T-PIECE FiO2 30%. FLACC 0. Temp: 100.[address] ON MONITOR. OXYGEN SAT: 98%. CHEST TUBE IN PLACE WITH STRAW YELLOW COLORED DRAINAGE TO GRAVITY. ABDOMEN SOFT, NON DISTENDED. AND TOLERATED WELL WITH G TUBE FEEDING NUTREN PULMONARY @ 60 ML/HR. NO RESIDUAL NOTED. OLD SURGICAL SCAR ON ABD NOTED. BUE EXTREMITIES CONTRACTED. RIGHT FOREARM #20G IV ACCESS INTACT AND PATENT W/IVF INFUSING @125 ML/HR. GRAHAM CATHETER IN PLACE WITH YELLOW COLORED DRAINAGE TO GRAVITY. SACRAL PRESSURE ULCER COVERED WITH DRESSING, CLEAN, INTACT, AND NO BLEEDING NOTED. SCD'S APPLIED TO BOTH LEGS FOR DVT PROPHYLAXIS. HOB ELEVATED TO 30 DEGREES FOR ASPIRATION PRECAUTION. ORAL CARE RENDERED. SAFETY MEASURES AND CONTACT PRECAUTION MAINTAINED. WILL CONTINUE TO MONITOR.
[2016-06-06] MEDS: METOPROLOL 50 MG TAB GT SCH ×2 (09:03→20:26)
[2016-06-06] MEDS: ACETAMINOPHEN 650 MG/20.3 ML UDC GT PRN (09:03)
[2016-06-06] MEDS: MULTIVITAMIN 5 ML ORASYR GT SCH (09:04)
[2016-06-06] MEDS: ASCORBIC ACID 500 MG/5 ML ORASYR GT SCH (09:04)
--- NOTE | 2016-06-06 09:05 | NUR ---
SCHEDULED MED GIVEN ORDERED VIA G TUBE BY GRAVITY. PT TOLERATED WELL ANTIPYRETICS GIVEN BY G TUBE FOR TEMP: 100.4 F ORDERED. MRSA NARES TREATMENT GIVEN ORDERED PER FACILITY PROTOCOL AND TOLERATED WELL. HOB ELEVATED TO 30 DEGREES. SAFETY MEASURES MAINTAINED.
[2016-06-06] MEDS: MUPIROCIN 2% OINT 22 GM TUBE TP SCH (09:06)
[2016-06-06] MEDS: ENOXAPARIN 40 MG/0.4 ML SYR SUBQ SCH (09:06)
--- NOTE | 2016-06-06 10:25 | NUR ---
RECHECKED PT'S TEMP: 99.0 F. WILL CONTINUE TO MONITOR.
--- NOTE | 2016-06-06 12:40 | NUR ---
DR. AMBROCIO IN TO SEE PT. INFORMED TO DR. AMBROCIO WITH PT'S CURRENT CLINICAL STATUS.
--- NOTE | 2016-06-06 15:17 | NUR ---
NOTE CONCURRENT REVIEW [facility]ENT [facility] FAX# [phone] PH# LOREN [phone] AUGUST [phone] Addendum: 06/07/16 at 1142 by Elizabeth Benjamin CM INITIAL REVIEW WAS SENT TO [facility] FAX# [phone] QUYEN PIMENTEL [phone] AUGUST [phone] ON 06/05/16
[2016-06-06] MEDS: BISACODYL 10 MG SUPP RC PRN (15:43)
[2016-06-06] MEDS: CHLORHEXADINE GLUC 2% CLOTH TP SCH (15:43)
--- NOTE | 2016-06-06 15:43 | NUR ---
SUPPOSITORY GIVEN RECTALLY FOR CONSTIPATION AND TOLERATED WELL. WILL CONTINUE TO MONITOR.
--- NOTE | 2016-06-06 16:00 | NUR ---
PT HAS A MODERATE AMT OF SOFT BM. MADE PT CLEAN,DRY,AND COMFORTABLE. REPOSITIONED PT. PT TOLERATED WELL WITH G TUBE FEEDING. NO RESIDUAL NOTED. HOB ELEVATED TO 30 DEGREES. CALL LIGHT WITHIN REACH.
--- NOTE | 2016-06-06 18:00 | NUR ---
ROUNDED ON PT. FLACC 0. V/S STABLE. REPOSITIONED PT AND TOLERATED WELL. HOB ELEVATED TO 30 DEGREES. ALL SAFETY MEASURES MAINTAINED WILL CONTINUED TO MONITOR.
--- NOTE | 2016-06-06 19:10 | NUR ---
ENDORSED REPORT TO PM SHIFT RN AT BEDSIDE IN STABLE CONDITION.
--- NOTE | 2016-06-06 20:00 | NUR ---
PATIENT RESPONDS TO DEEP PAIN, ST ON THE MONITOR, TRACH TO TPIECE TO COOL AEROSOL 30%, , GT FEEDING NUTREN PULMONARY AT 60 ML/HR, NO RESIDUAL OBTAINED, HOB ELEVATED, IVF NS AT 125 ML/HR, IV SITE ON RFA G#20 PATENT AND INTACT, GRAHAM CATH DRAINING CLEAR YELLOW URINE, WITH PRESSURE ULCER ON SACROCOCCYX AREA, TURNED AND REPOSITIONED, FLACC 0.
--- NOTE | 2016-06-06 20:27 | NUR ---
PT ON 30% TRACH JALYN, SX LARGE CREAMY THICK SECRETION, MED NEB IN LINE, NO DISTRESS NOTED
--- NOTE | 2016-06-06 22:00 | NUR ---
TURNED AND REPOSITIONED, GT FEEDING CONTINUE, HOB ELEVATED, NO SOB, FLACC 0.
--- NOTE | 2016-06-06 22:00 | NUR ---
PATIENT SLEEPING, SR ON THE MONITOR, MONITORED CLOSELY. Addendum: 06/06/16 at 2258 by Macey Fisher RN WRONG CHARTING, WRONG PATIENT.
[2016-06-07] VITALS (12 sets, daily range): BP systolic 102–132; BP diastolic 56–74
--- NOTE | 2016-06-07 | NUR ---
PATIENT'S CHEST TUBE ON LEFT SIDE INTACT, DRAINING LIGHT YELLOW DRAINAGE, NO RESPIRATORY DISTRESS, TURNED AND REPOSITIONED, FLACC 0.
[2016-06-07] MEDS: Z-GUARD PASTE TP SCH ×2 (00:44→12:49)
[2016-06-07] MEDS: ALBUTEROL SULFATE/IPRATROPIU 3 ML SOL IH SCH ×4 (01:45→19:01)
--- NOTE | 2016-06-07 02:00 | NUR ---
SUCTIONED WITH SMALL CREAMY THICK SECRETIONS, TURNED AND REPOSITIONED, FLACC 0.
[2016-06-07] MEDS: VANCOMYCIN 1GM/DEXT 5% PREMIX 200 ML IV SCH (02:10)
[2016-06-07] MEDS: NACL 0.9% 1,000 ML IV SCH ×3 (02:46→20:46)
--- NOTE | 2016-06-07 04:48 | NUR ---
PATIENT HAS LARGE SOFT STOOL, WASHED AND CLEANED, TURNED AND REPOSITIONED, NO GT RESIDUAL OBTAINED, NO SOB, FLACC 0.
[2016-06-07] MEDS: METOCLOPRAMIDE 10 MG TAB GT SCH ×4 (05:01→23:37)
[2016-06-07] MEDS: PIPERACILLIN/TAZOBACTAM 4.5 GM in DEXTROSE 5% 100 ML IV SCH (05:02)
--- NOTE | 2016-06-07 06:04 | NUR ---
AM CARE PROVIDED, NO RESPIRATORY DISTRESS, GT FEEDING TOLERATED WELL, TURNED TO LEFT SIDE, FLACC 0.
[2016-06-07 06:08] LABS: HEMOGLOBIN 7.8 g/dL (12.0-18.0); RED BLOOD CELL COUNT(AUTO) 2.53 MIL/uL (4.20-6.10)
[2016-06-07 06:09] LABS: HEMATOCRIT 23.5 % (36-52); MEAN CORPUSCULAR HEMOGLOBIN 31 pg (27-31); MEAN CORPUSCULAR HGB CONC 33 g/dL (33-37); MEAN CORPUSCULAR VOLUME 93 fL (80-94)
[2016-06-07 06:10] LABS: PLATELET COUNT (AUTO) 1104 K/uL (140-450)
--- NOTE | 2016-06-07 06:18 | NUR ---
DR. CORLEY NOTIFIED ABOUT PLT 1104 TODAY, INFORMED PHYSICIAN THAT PATIENT'S PLT HAS BEEN ELEVATED X 4 DAYS NOW AND PATIENT IS ALSO ON LOVENOX, NO ACTIVE BLEEDING NOTED. NO NEW ORDER GIVEN.
[2016-06-07 06:29] LABS: CALCIUM 8.4 mg/dL (8.5-10.1); CARBON DIOXIDE 25.6 mmol/L (21-32); CREATININE 0.6 mg/dL (0.6-1.3); POTASSIUM 4.6 mmol/L (3.5-5.1)
[2016-06-07 06:33] LABS: MAGNESIUM 2.2 mg/dL (1.8-2.4); PHOSPHORUS 2.7 mg/dL (2.5-4.9)
[2016-06-07 07:12] LABS: BAND % (MANUAL) 7 % (0-8); HYPOCHROMASIA 1+; LYMPHOCYTES % (MANUAL) 7 % (20-46); METAMYELOCYTES % 1 % (0-0); MONOCYTES % (MANUAL) 3 % (5-12); MYELOCYTES % 1 % (0-0); NEUTROPHILS % (MANUAL) 81 (43-65); PLATELET ESTIMATE INCREASED; POLYCHROMASIA 1+; TOXIC GRANULATION 1+
--- NOTE | 2016-06-07 07:12 | NUR ---
RECEIVED PT ON 30 % C.A. VIA TRACH SHILEY DCT SIZE 6 IS SECURE DRAIN H2O BAG BS RHONCI I\L LAVAGE AND SX LG YELLOW PT IN HF NOT AWAKE HHN GIVEN I\L WITH 3 MG DUONEB
--- NOTE | 2016-06-07 08:00 | NUR ---
INITIAL SHIFT ASSESSMENT DONE (SEE ASSESSMENT PART). RESPONSE TO PAIN STIMULI ONLY. ON O2 AT 30% VIA T-PIECE, TOLERATING WELL. O2 SAT 98-100%. ST ON MONITOR. SBP IN 110'S-130'S. NO ECTOPY NOTED. HOB ELEVATED. ON TF VIA G-TUBE, TOLERATING WELL. NO RESIDUALS NOTED. LEFT CHEST TUBE PATENT, INTACT, AND DRAINING TO GRAVITY. UPDATED OF PLAN OF CARE. WILL CONTINUE TO MONITOR.
[2016-06-07] MEDS: ASCORBIC ACID 500 MG/5 ML ORASYR GT SCH (09:06)
[2016-06-07] MEDS: METOPROLOL 50 MG TAB GT SCH ×2 (09:06→20:45)
[2016-06-07] MEDS: MULTIVITAMIN 5 ML ORASYR GT SCH (09:06)
[2016-06-07] MEDS: MUPIROCIN 2% OINT 22 GM TUBE TP SCH (09:06)
[2016-06-07] MEDS: ENOXAPARIN 40 MG/0.4 ML SYR SUBQ SCH (09:07)
[2016-06-07] MEDS ORDERED: VANCOMYCIN PER PHARMACY MC PRN (09:35)
--- NOTE | 2016-06-07 10:00 | NUR ---
RESTING IN BED. NO SIGNS OF PAIN OR AGITATION. TOLERATING T-PIECE WELL. O2 SAT 100%. SR ON MONITOR. SBP IN 100'S-110'S. NO ECTOPY NOTED. HOB ELEVATED. WILL CONTINUE TO MONITOR.
--- NOTE | 2016-06-07 11:00 | NUR ---
DR PHOENIX CALL THE UNIT AT THIS TIME. MD ORDER NOT TO REMOVE OR D/C THE LEFT CHEST TUBE AND LET IT DRAIN BY GRAVITY.
--- NOTE | 2016-06-07 11:15 | NUR ---
MOTHER OF THE PATIENT IS IN THE ROOM. UPDATED OF STATUS AND PLAN OF CARE.
--- NOTE | 2016-06-07 11:37 | NUR ---
CM NOTE CONCURRENT REVIEW SENT TO [facility] FAX# [phone] PH# LOREN [phone] AUGUST [phone]
--- NOTE | 2016-06-07 12:00 | NUR ---
REASSESSMENT DONE. NEURO STATUS STILL THE SAME. NO SIGNS OF PAIN OR AGITATION. TOLERATING T-PIECE WELL. O2 SAT 97-99%. SR ON MONITOR. SBP IN 100'S-110'S. NO ECTOPY NOTED. TOLERATING TF WELL. NO RESIDUALS NOTED. HOB ELEVATED. UPDATED OF PLAN OF CARE. WILL CONTINUE TO MONITOR.
--- NOTE | 2016-06-07 12:15 | NUR ---
DR CRUZ IS IN THE ROOM. UPDATED OF STATUS. NO NEW ORDER RECEIVE.
[2016-06-07] MEDS: CEFEPIME 2,000 MG in DEXTROSE 5% 100 ML IV SCH ×2 (12:47→20:46)
--- NOTE | 2016-06-07 12:50 | NUR ---
DRESSING ON COCCYX IS CHANGE AT THIS TIME. TOLERATED THE PROCEDURE WELL.
--- NOTE | 2016-06-07 13:19 | NUR ---
06/07/16 RD FOLLOW UP COMPLETED PLEASE REFER TO NUTRITION PROGRESS NOTE UNDER CARE ACTIVITY FOR ESTIMATED NUTRITION NEEDS. RD RECOMMENDATIONS: 1. CONTINUE NUTRITION SUPPORT NUTREN PULMONARY AT 60 ML/HR WITH 60 ML FREE WATER FLUSH Q6H VIA GTUBE TOLERATED PER MD 2. RECOMMEND PROSOURCE PROTEIN SUPPLEMENTATION BID TO ADD ADDITIONAL 120 KCAL AND 30 GM PROTEIN TO HELP PT MEET 100% OF ESTIMATED KCAL AND PROTEIN NEEDS 3. RD WILL F/U 2-3 DAYS; HIGH RISK. WAYLON PHILLIPS RD
--- NOTE | 2016-06-07 14:00 | NUR ---
RESTING IN BED. NO SIGNS OF PAIN OR AGITATION NOTED. TOLERATING T-PIECE WELL. O2 SAT 98-100%. SR ON MONITOR. SBP IN 100'S-110'S. NO ECTOPY NOTED. HOB ELEVATED. WILL CONTINUE TO MONITOR.
[2016-06-07] MEDS: CHLORHEXADINE GLUC 2% CLOTH TP SCH (15:10)
--- NOTE | 2016-06-07 16:00 | NUR ---
REASSESSMENT DONE. NEURO STATUS UNCHANGED. NO SIGNS OF PAIN OR AGITATION NOTED. TOLERATING T-PIECE WELL. O2 SAT 98-100%. ST ON MONITOR. SBP IN 110'S. NO ECTOPY NOTED. TOLERATING TF WELL. NO RESIDUALS NOTED. HOB ELEVATED. UPDATED OF PLAN OF CARE. WILL CONTINUE TO MONITOR.
--- NOTE | 2016-06-07 17:00 | NUR ---
GIVEN PARTIAL BATH AND LINENS ARE CHANGE. TOLERATED THE PROCEDURE WELL.
[2016-06-07] MEDS ORDERED: PROBIOTIC SCREEN 1 EA MISC MC PRN (17:10)
--- NOTE | 2016-06-07 18:00 | NUR ---
RESTING IN BED. NO SIGNS OF PAIN OR AGITATION NOTED. TOLERATING T-PIECE WELL. O2 SAT 98-100%. ST ON MONITOR. SBP IN 120'S. NO ECTOPY NOTED. HOB ELEVATED. WILL CONTINUE TO MONITOR.
--- NOTE | 2016-06-07 19:12 | NUR ---
REPORT GIVEN TO INCOMING SCREW MACHINE SET UP OPERATOR RN, RYAN NUNEZ.
--- NOTE | 2016-06-07 20:00 | NUR ---
PATIENT OBTUNDED, ST ON THE MONITOR, TPIECE TO COOL AEROSOL AT 30%, SUCTIONED WITH SMALL CREAMY SECRETIONS, GT FEEDING WITH NO RESIDUAL OBTAINED, HOB ELEVATED, IVF NS AT 125 ML/HR, IV SITE ON RFA G#20 PATENT AND INTACT, GRAHAM CATH DRAINING CLEAR YELLOW URINE, PATIENT WITH LARGE SOFT BOWEL MOVEMENT, WASHED AND CLEANED, TURNED AND REPOSITIONED, NO SOB, FLACC 0.
[2016-06-07] MEDS: VANCOMYCIN 750 MG in DEXTROSE 5% 250 ML IV SCH (21:48)
--- NOTE | 2016-06-07 22:00 | NUR ---
PATIENT'S MOTHER VISITED. PATIENT TURNED AND REPOSITIONED, FLACC 0.
[2016-06-08] VITALS (12 sets, daily range): BP systolic 110–136; BP diastolic 60–87
--- NOTE | 2016-06-08 | NUR ---
PATIENT WITH LARGE BROWN SOFT BOWEL MOVEMENT, BED BATH GIVEN AND COMPLETE LINEN CHANGED DONE. ORAL CARE PROVIDED, SUCTIONED WITH YELLOW SECRETIONS, FLACC 0.
[2016-06-08] MEDS: Z-GUARD PASTE TP SCH ×2 (00:31→13:59)
[2016-06-08] MEDS: ALBUTEROL SULFATE/IPRATROPIU 3 ML SOL IH SCH ×4 (01:18→19:54)
[2016-06-08] MEDS: NACL 0.9% 1,000 ML IV SCH ×3 (03:29→20:09)
--- NOTE | 2016-06-08 04:00 | NUR ---
PATIENT WITH LARGE BROWN SOFT STOOL, WASHED AND CLEANED, SACROCOCCYX DRESSING CHANGED, REPOSITIONED, FLACC 0.
[2016-06-08] MEDS: CEFEPIME 2,000 MG in DEXTROSE 5% 100 ML IV SCH ×3 (04:56→20:10)
[2016-06-08 05:06] LABS: HEMATOCRIT 26.9 % (36-52); MEAN CORPUSCULAR HEMOGLOBIN 31 pg (27-31); MEAN CORPUSCULAR HGB CONC 34 g/dL (33-37); MEAN CORPUSCULAR VOLUME 92 fL (80-94); PLATELET COUNT (AUTO) 1174 K/uL (140-450); RED BLOOD CELL COUNT(AUTO) 2.92 MIL/uL (4.20-6.10); RED CELL DISTRIBUTION WIDTH 15.2 % (11.6-13.7); WHITE BLOOD COUNT (AUTO) 25.6 K/uL (4.8-10.8)
[2016-06-08 06:15] LABS: ANION GAP 12.7 (8-16); CREATININE 0.5 mg/dL (0.6-1.3); MAGNESIUM 2.1 mg/dL (1.8-2.4); PHOSPHORUS 2.9 mg/dL (2.5-4.9); POTASSIUM 4.7 mmol/L (3.5-5.1)
[2016-06-08] MEDS: METOCLOPRAMIDE 10 MG TAB GT SCH ×4 (06:16→23:40)
[2016-06-08] MEDS: VANCOMYCIN 750 MG in DEXTROSE 5% 250 ML IV SCH ×3 (06:17→21:55)
--- NOTE | 2016-06-08 06:44 | NUR ---
AM CARE PROVIDED, GT FEEDING TOLERATED WELL, NO RESPIRATORY DISTRESS, ST ON THE MONITOR, TURNED AND REPOSITIONED, HOB ELEVATED, FLACC 0.
[2016-06-08 06:49] LABS: EOSINOPHILS % (MANUAL) 3 % (0-4); METAMYELOCYTES % 1 % (0-0); MONOCYTES % (MANUAL) 7 % (5-12); NEUTROPHILS % (MANUAL) 77 (43-65)
[2016-06-08 06:50] LABS: BAND % (MANUAL) 1 % (0-8)
[2016-06-08 06:51] LABS: LYMPHOCYTES % (MANUAL) 11 % (20-46); TOXIC GRANULATION 1+
--- NOTE | 2016-06-08 07:06 | NUR ---
RECEIVED ON A COOL AEROSOL AT 30%/6 LPM ONN AND FUNCTIONING WELL TO AT [facility] #6 DCT AIRWAY CUFF PRESSUR RECHECKED LOC AWAKE NON VERBAL SATURATION 98% POST THERAPY TITRETD FIO2TO 28%/6 LPM BRYN/RN NOTIFIED
--- NOTE | 2016-06-08 07:10 | NUR ---
RECEIVED PATIENT ON BED.INITIAL ASSESSMENT DONE TO PATIENT.TRACHE TO 28 PERCENT AEROSOL MASK.PT SATURATING [address] ON THE MONITOR.RIGHT FOREARM 20 GAUGE IV WITH ABT ONGOING.NO SIGNS OF INFILTRATION.GTUBE WITH NUTREN PULMONARY AT 60 ML/H.NO RESIDUAL NOTED.GRAHAM TO GRAVITY.WILL MONITOR.
[2016-06-08] MEDS: MULTIVITAMIN 5 ML ORASYR GT SCH (08:41)
[2016-06-08] MEDS: METOPROLOL 50 MG TAB GT SCH ×2 (08:41→20:10)
[2016-06-08] MEDS: ASCORBIC ACID 500 MG/5 ML ORASYR GT SCH (08:41)
[2016-06-08] MEDS: MUPIROCIN 2% OINT 22 GM TUBE TP SCH (08:42)
[2016-06-08] MEDS: ENOXAPARIN 40 MG/0.4 ML SYR SUBQ SCH (08:44)
--- NOTE | 2016-06-08 11:45 | NUR ---
CM NOTE CONCURRENT REVIEW SENT TO [facility] FAX# [phone] PH# LOREN [phone] AUGUST [phone]
--- NOTE | 2016-06-08 13:30 | NUR ---
DR ZAVALA UPDATED ABOUT PATIENTS CONDITION AND SAW PATIENT ESPECIALLY THE RHYTHM ST AND TACHYPNEIC.
[2016-06-08] MEDS: CHLORHEXADINE GLUC 2% CLOTH TP SCH (15:13)
--- NOTE | 2016-06-08 19:19 | NUR ---
REPORT GIVEN TO ENRIQUE PRABHAKAR FOR CONTINUITY OF CARE
--- NOTE | 2016-06-08 19:20 | NUR ---
REPORT GIVEN TO ENRIQUE PRABHAKAR FOR CONTINUITY OF CARE Addendum: 06/08/16 at 1922 by Janie Peralta RN RN PLS DISREGARD ABOVE NOTES
--- NOTE | 2016-06-08 20:00 | NUR ---
PATIENT OBTUNDED, ST ON THE MONITOR, TEMPERATURE 100.4, SPONGE BATH PROVIDED, SUCTIONED WITH MODERATE AMOUNT OF CREAMY SECRETIONS, IVF NS AT 125 MLS/HR, RFA G#20 IV SITE PATENT AND INTACT, GRAHAM CATH DRAINING CLEAR YELLOW URINE, CHEST TUBE ON LEFT LATERAL CHEST INTACT WITH LIGHT YELLOW DRAINAGE, NO RESPIRATORY DISTRESS, FLACC 0.
[2016-06-08] MEDS: ACETAMINOPHEN 650 MG/20.3 ML UDC GT PRN (20:10)
--- NOTE | 2016-06-08 22:00 | NUR ---
TEMPERATURE 99.2, HR 93, TURNED AND REPOSITIONED, FLACC 0, PATIENT'S MOTHER AT BEDSIDE.
[2016-06-09] VITALS (12 sets, daily range): BP systolic 101–132; BP diastolic 57–81
--- NOTE | 2016-06-09 | NUR ---
SUCTIONED PATIENT, NO GT RESIDUAL, TURNED AND REPOSITIONED, NO SOB, FLACC 0.
[2016-06-09] MEDS: ALBUTEROL SULFATE/IPRATROPIU 3 ML SOL IH SCH ×4 (01:00→19:22)
[2016-06-09] MEDS: Z-GUARD PASTE TP SCH ×2 (01:01→13:37)
--- NOTE | 2016-06-09 01:30 | NUR ---
TRACH GAUZE AND TRACH THEODORE CHANGED, TOLERATED WELL. SUCTION MOD AMT OF THICK/THIN WHITE SECRETIONS, TOLERATED WELL. REPLACED WATER FOR COOL AEROSOL. SP02 100%. NO RESP DISTRESS NOTED AT THIS TIME.
[2016-06-09] MEDS: NACL 0.9% 1,000 ML IV SCH ×3 (03:29→19:29)
--- NOTE | 2016-06-09 04:00 | NUR ---
SUCTIONED ORALLY, ORAL CARE WITH VAP KIT, TURNED AND REPOSITIONED, FLACC 0.
[2016-06-09] MEDS: CEFEPIME 2,000 MG in DEXTROSE 5% 100 ML IV SCH ×3 (04:32→20:06)
[2016-06-09 05:43] LABS: HEMATOCRIT 28.6 % (36-52); HEMOGLOBIN 9.3 g/dL (12.0-18.0); MEAN CORPUSCULAR HEMOGLOBIN 30 pg (27-31); MEAN CORPUSCULAR HGB CONC 32 g/dL (33-37); MEAN CORPUSCULAR VOLUME 92 fL (80-94); RED BLOOD CELL COUNT(AUTO) 3.11 MIL/uL (4.20-6.10); RED CELL DISTRIBUTION WIDTH 15.6 % (11.6-13.7)
[2016-06-09] MEDS: VANCOMYCIN 750 MG in DEXTROSE 5% 250 ML IV SCH ×3 (05:46→21:03)
[2016-06-09] MEDS: METOCLOPRAMIDE 10 MG TAB GT SCH (05:47)
[2016-06-09 05:49] LABS: ANION GAP 6.5 (8-16); CALCIUM 9.1 mg/dL (8.5-10.1); CREATININE 0.6 mg/dL (0.6-1.3); POTASSIUM 4.5 mmol/L (3.5-5.1)
[2016-06-09 06:04] LABS: WHITE BLOOD COUNT (AUTO) 32.6 K/uL (4.8-10.8)
[2016-06-09 06:05] LABS: PLATELET COUNT (AUTO) 794 K/uL (140-450)
[2016-06-09 06:13] LABS: MAGNESIUM 2.1 mg/dL (1.8-2.4); PHOSPHORUS 3.7 mg/dL (2.5-4.9)
--- NOTE | 2016-06-09 06:42 | NUR ---
PATIENT WITH LARGE SOFT GREENISH STOOL, WASHED AND CLEANED, TURNED AND REPOSITIONED, NO RESPIRATORY DISTRESS, GT FEEDING TOLERATED WELL, FLACC 0.
[2016-06-09 06:47] LABS: BAND % (MANUAL) 2 % (0-8); NEUTROPHILS % (MANUAL) 79 (43-65)
[2016-06-09 06:48] LABS: EOSINOPHILS % (MANUAL) 1 % (0-4); LYMPHOCYTES % (MANUAL) 13 % (20-46); METAMYELOCYTES % 2 % (0-0); MONOCYTES % (MANUAL) 3 % (5-12); TOXIC GRANULATION 1+
--- NOTE | 2016-06-09 07:15 | NUR ---
RECEIVED REPORT FROM RYAN NUNEZ. NO SIGNS OF ACUTE DISTRESS AT THIS TIME, FLACC 0. PT IS TRACH TO T PIECE TO HUMIDIFIED AIR AT 6 L/MIN. IV TO RIGHT FOREARM #20 PATENT AND INTACT. LEFT CHEST TUBE IN PLACE DRAINING TO GRAVITY. WOUND NOTED TO SACRUM. G TUBE IN PLACE TO TUBE FEEDING. NO RESIDUAL NOTED. GRAHAM CATHETER IN PLACE DRAINING TO GRAVITY DRAINAGE BAG. PT IS SINUS TACHYCARDIA ON THE MONITOR. PT IS ON CONTACT ISOLATION WITH SIGNS POSTED OUTSIDE OF PT'S ROOM. SAFETY PRECAUTIONS IN PLACE WITH BED IN LOWEST POSITION AND SIDE RAILS UP. CALL LIGHT WITHIN REACH. WILL CONTINUE TO MONITOR. Addendum: 06/09/16 at 1210 by Belen Germain RN DEPRESSION TO RIGHT CRANIUM AND OLD SCARS TO ABDOMEN NOTED.
--- NOTE | 2016-06-09 09:02 | NUR ---
DR. DIAMOND IN TO SEE PT. WILL FOLLOW UP ON ORDERS.
[2016-06-09] MEDS: METOPROLOL 50 MG TAB GT SCH ×2 (09:13→20:06)
[2016-06-09] MEDS: MULTIVITAMIN 5 ML ORASYR GT SCH (09:14)
[2016-06-09] MEDS: LACTOBACILLUS RHAMNOSUS GG 1 EACH CAP PO SCH (09:14)
[2016-06-09] MEDS: ASCORBIC ACID 500 MG/5 ML ORASYR GT SCH (09:14)
[2016-06-09] MEDS: MUPIROCIN 2% OINT 22 GM TUBE TP SCH (09:15)
[2016-06-09] MEDS: ENOXAPARIN 40 MG/0.4 ML SYR SUBQ SCH (09:19)
--- NOTE | 2016-06-09 09:26 | NUR ---
CHECKED TUBE FEEDING RESIDUAL: NONE NOTED. CHECKED BP: 129/77. ADMINISTERED MEDICATION ORDERED. PT TOLERATED WELL.
--- NOTE | 2016-06-09 11:04 | NUR ---
URINE COLLECTED AND SENT TO LAB.
[2016-06-09 11:21] LABS: APPEARANCE,URINE CLEAR (CLEAR); BILIRUBIN,URINE NEGATIVE (NEGATIVE); BLOOD, URINE NEGATIVE (NEGATIVE); COLOR,URINE YELLOW (YELLOW); LEUKOCYTE ESTERASE ,URINE NEGATIVE (NEGATIVE); NITRITE, URINE NEGATIVE (NEGATIVE); PROTEIN,URINE NEGATIVE (NEGATIVE); UGLUCOSE NEGATIVE (NEGATIVE); UROBILINOGEN,URINE 0.2 EU/dL (0.2 - 1)
--- NOTE | 2016-06-09 11:30 | NUR ---
PT'S MOTHER PRESENT AT BEDSIDE.
[2016-06-09] MEDS: FLUCONAZOLE 200 MG/NS PREMIX 100 ML IV SCH (11:38)
[2016-06-09] MEDS: METOCLOPRAMIDE 10 MG/10 ML SYRP UDC GT SCH ×3 (11:38→23:36)
--- NOTE | 2016-06-09 11:55 | NUR ---
CHECKED TUBE FEEDING RESIDUAL. NONE NOTED. ADM. MED ORDERED. PT TOLERATED WELL
--- NOTE | 2016-06-09 13:37 | NUR ---
PT TOLERATED MEDS WELL.
--- NOTE | 2016-06-09 13:46 | NUR ---
DR. CRUZ IN TO SEE PT. WILL FOLLOW UP ON ORDERS.
--- NOTE | 2016-06-09 14:42 | NUR ---
06/09/16 RD FOLLOW UP COMPLETED PLEASE REFER TO NUTRITION PROGRESS NOTE UNDER CARE ACTIVITY FOR ESTIMATED NUTRITION NEEDS. RD RECOMMENDATIONS: 1. CONTINUE NUTRITION SUPPORT NUTREN PULMONARY AT 60 ML/HR WITH 50 ML FREE WATER FLUSH Q6H AND PROSOURCE BID VIA GTUBE TOLERATED PER MD 2. RD WILL F/U 2-3 DAYS; HIGH RISK. WAYLON PHILLIPS RD
--- NOTE | 2016-06-09 14:56 | NUR ---
PT TOLERATED MEDS WELL.
[2016-06-09] MEDS ORDERED: MORPHINE SULFATE 2 MG/ML SYR IVP PRN (15:25)
[2016-06-09] MEDS ORDERED: HYDROcodone/APAP 5/325 MG 1 TAB TAB GT PRN (15:25)
--- NOTE | 2016-06-09 16:00 | NUR ---
CM NOTE GAVE CLINICAL UPDATE TO EUGENE PIMENTEL OF [facility] PH# [phone]
[2016-06-09] MEDS: ACETAMINOPHEN 650 MG/20.3 ML UDC GT PRN (16:08)
--- NOTE | 2016-06-09 16:10 | NUR ---
CHECKED TEMP: 100.2. COOLING MEASURES IN PLACE. CHECKED TUBE FEEDING RESIDUAL: NONE NOTED. ADMINISTERED TYLENOL ORDERED PRN. PT TOLERATED WELL. WILL REASSESS.
--- NOTE | 2016-06-09 17:01 | NUR ---
RECHECKED TEMP: 99.6. WILL CONTINUE TO MONITOR
--- NOTE | 2016-06-09 19:09 | NUR ---
ENDORSED CARE TO RYAN CUADRA. PT IN STABLE CONDITION.
--- NOTE | 2016-06-09 19:15 | NUR ---
RECEIVED REPORT FROM DAY NURSE RYAN MAXWELL PT OPENS EYES SPONTANEOUSLY, BUT DOES NOT FOLLOW COMMANDS. PT IS TRACH TO T-PIECE TO HUMIDIFIED AIR AT 6/L MIN WITH NO S/S OF ACUTE RESPIRATORY DISTRESS AT THIS TIME. DRILLER PORTABLE SHOWS SINUS TACH OF 118 AT THIS TIME. PT HAS RIGHT FA #20 IV SITE RUNNING NS AT 125ML/HR WITH GOOD BLOOD RETURN NOTED. PT HAS LEFT CHEST TUBE DRAINING VIA GRAVITY AT BEDSIDE. PT HAS G-TUBE IN PLACE RUNNING NUTREN PULMONARY AT 60 ML/HR WITH NO GASTRIC RESIDUAL ASPIRATED. PT HAS STAGE 2 ON SACRAL WOUND NOTED OPEN TO AIR. PT IS ON CONTACT PRECAUTIONS, SAFETY PRECAUTIONS MAINTAINED, HOB UP BED IN LOW POSITION WILL CONTINUE TO CLOSELY MONITOR.
--- NOTE | 2016-06-09 20:10 | NUR ---
PT TURNED, REPOSITIONED, VAP ORAL KIT DONE. PT'S UNCLE AT BEDSIDE.
--- NOTE | 2016-06-09 20:34 | NUR ---
DR PHOENIX HERE ON THE UNIT TO SEE THE PATIENT. NO NEW ORDERS AT THIS TIME
--- NOTE | 2016-06-09 21:50 | NUR ---
PT'S MOTHER HERE AT BEDSIDE.
[2016-06-10] VITALS (12 sets, daily range): BP systolic 110–127; BP diastolic 54–78
--- NOTE | 2016-06-10 | NUR ---
PT ORAL CARE PROVIDED VIA VAP KIT. PT TURNED, REPOSITIONED, EMPTIED 1000ML FROM GRAHAM CATHETER BAG AT THIS TIME. NO SOB NOTED AT THIS TIME. WILL CONTINUE TO MONITOR CLOSELY.
[2016-06-10] MEDS: Z-GUARD PASTE TP SCH ×2 (01:08→13:00)
[2016-06-10] MEDS: ALBUTEROL SULFATE/IPRATROPIU 3 ML SOL IH SCH ×4 (01:26→19:00)
[2016-06-10] MEDS: NACL 0.9% 1,000 ML IV SCH ×3 (02:32→19:29)
--- NOTE | 2016-06-10 02:37 | NUR ---
CHANGED NEW IV BAG. PT RESTING IN BED. SAFETY PRECAUTIONS STILL MAINTAINED, CONTACT PRECAUTIONS MAINTAINED. NO SIGNS OR SYMPTOMS OF DISTRESS OR DISCOMFORT AT THIS TIME. WILL CONTINUE TO CLOSELY MONITOR.
[2016-06-10] MEDS: CEFEPIME 2,000 MG in DEXTROSE 5% 100 ML IV SCH ×3 (04:05→20:11)
--- NOTE | 2016-06-10 04:39 | NUR ---
MORNING CARE RENDERED, PT CLEANED, LINEN CHANGED, PT HAS MODERATE AMOUNT OF SOFT BROWN BM. PT TURNED AND REPOSITIONED ORAL CARE PROVIDED VIA VAP KIT. NO SOB NOTED AT THIS TIME. WILL CONTINUE TO CLOSELY MONITOR.
[2016-06-10] MEDS: METOCLOPRAMIDE 10 MG/10 ML SYRP UDC GT SCH ×4 (05:39→23:11)
[2016-06-10] MEDS: VANCOMYCIN 750 MG in DEXTROSE 5% 250 ML IV SCH ×3 (05:39→21:38)
[2016-06-10 05:44] LABS: MEAN CORPUSCULAR VOLUME 92 fL (80-94)
[2016-06-10 05:56] LABS: HEMOGLOBIN 9.6 g/dL (12.0-18.0); MEAN CORPUSCULAR HEMOGLOBIN 31 pg (27-31); MEAN CORPUSCULAR HGB CONC 33 g/dL (33-37); RED BLOOD CELL COUNT(AUTO) 3.14 MIL/uL (4.20-6.10); RED CELL DISTRIBUTION WIDTH 15.4 % (11.6-13.7); WHITE BLOOD COUNT (AUTO) 20.5 K/uL (4.8-10.8)
[2016-06-10 06:06] LABS: ANION GAP 14.1 (8-16); CALCIUM 9.3 mg/dL (8.5-10.1); CARBON DIOXIDE 25.5 mmol/L (21-32); CREATININE 0.6 mg/dL (0.6-1.3); POTASSIUM 4.6 mmol/L (3.5-5.1)
[2016-06-10 06:09] LABS: PLATELET COUNT (AUTO) 1035 K/uL (140-450)
--- NOTE | 2016-06-10 06:16 | NUR ---
ELVAD DR. BURNETT FOR CRITICAL LAB RESULT OF PLATELET 1035. AWAITING FOR CALL BACK.
--- NOTE | 2016-06-10 06:23 | NUR ---
RECEIVED A CALL BACK FROM DR. MCCORMACK. DR. MCCORMACK NOTIFIED OF PT'S PLATELET OF 1035 WITH NO NEW ORDERS.
--- NOTE | 2016-06-10 06:42 | NUR ---
PT RESTING IN BED. NO SOB NOTED AT THIS TIME. WILL CONTINUE TO MONITOR.
--- NOTE | 2016-06-10 06:44 | NUR ---
BREATHING NOT GIVEN DUE TO HR 132 AND RN VENECIA NOTIFIED
[2016-06-10 06:54] LABS: BAND % (MANUAL) 3 % (0-8); NEUTROPHILS % (MANUAL) 77 (43-65)
[2016-06-10 06:55] LABS: EOSINOPHILS % (MANUAL) 1 % (0-4); LYMPHOCYTES % (MANUAL) 15 % (20-46); MONOCYTES % (MANUAL) 4 % (5-12); PLATELET ESTIMATE INCREASED; POLYCHROMASIA 1+
--- NOTE | 2016-06-10 07:05 | NUR ---
ENDORSED PLAN OF CARE TO DAY NURSE RYAN BURTON AT PATIENT BEDSIDE.
--- NOTE | 2016-06-10 07:30 | NUR ---
RECEIVED PT FROM RN FIELD CASE MANAGER VENECIA RN. PT OPENS EYES,NON VERBAL, NO RESPONSIVE TO NAME STIMULI. MONITOR SHOWS ST 133 AT THIS TIME. PT TRACH TO T-PIECE TO HUMIDIFIED AIR AT 6L/MIN WITHOUT S/S OF RESPIRATORY DISTRESS. ABDOMEN SOFT, G-TUBE IN PLACE WITH NUTREN PULMONARY AT 60 ML/HR, NO RESIDUAL NOTED. LEFT CHEST TUBE IN PLACE DRAINING VIA GRAVITY AT BEDSIDE. SKIN NON INTACT ( SEE WOUND ASSESSMENT). GRAHAM CATH IN PLACE WITH SMALL AMOUNT OF CLEAR YELLOW URINE. SCDS IN PLACE, HOB ELEVATED 30 DEGREES WITH LOW BED POSITION. WILL CONTINUE TO MONITOR.
[2016-06-10] MEDS: LACTOBACILLUS RHAMNOSUS GG 1 EACH CAP PO SCH (08:24)
[2016-06-10] MEDS: ASCORBIC ACID 500 MG/5 ML ORASYR GT SCH (08:24)
[2016-06-10] MEDS: MULTIVITAMIN 5 ML ORASYR GT SCH (08:24)
[2016-06-10] MEDS: METOPROLOL 50 MG TAB GT SCH ×2 (08:25→20:10)
[2016-06-10] MEDS: ENOXAPARIN 40 MG/0.4 ML SYR SUBQ SCH (08:27)
[2016-06-10] MEDS: MUPIROCIN 2% OINT 22 GM TUBE TP SCH (08:37)
--- NOTE | 2016-06-10 09:00 | NUR ---
DUE MEDS GIVEN. PT TOLERATED WELL.
--- NOTE | 2016-06-10 10:15 | NUR ---
TURNED AND REPOSITIONED PT. NO S/S OF RESPIRATORY DISTRESS NOTED AT THIS TIME. WILL CONTINUE TO MONITOR.
[2016-06-10] MEDS: FLUCONAZOLE 200 MG/NS PREMIX 100 ML IV SCH (10:19)
--- NOTE | 2016-06-10 12:15 | NUR ---
PT RESTING IN BED, NO S/S OF RESPIRATORY DISTRESS NOTED AT THIS TIME. ORAL CARE GIVEN.
--- NOTE | 2016-06-10 13:10 | NUR ---
BREATHING TX HELD DUE TO HIGH HEART RATE OF 130 RN RAWI NOTIFIED
--- NOTE | 2016-06-10 14:00 | NUR ---
TURNED AND REPOSITIONED PT. NO SOB.
--- NOTE | 2016-06-10 15:23 | NUR ---
TRACH CARE DONE: CHANGED TRACH TIE AND GAUZE AND INNER CANNULA WAS CLEANED SNX PT LARGE AMT OF THICK YELLOW SECRETIONS
--- NOTE | 2016-06-10 16:10 | NUR ---
TURNED AND REPOSITIONED PT, ORAL CARE GIVEN. BED BATH GIVEN. NO SOB.
--- NOTE | 2016-06-10 18:10 | NUR ---
PT'S MOTHER PRESENT AT PT'S BEDSIDE.
--- NOTE | 2016-06-10 18:41 | NUR ---
LEFT MESSAGE FOR AIDAN CASE MANAGEMENT FOR LATC EVALUATION.
--- NOTE | 2016-06-10 19:03 | NUR ---
REPORT GIVEN TO VENECIA DAVIS.
--- NOTE | 2016-06-10 19:07 | NUR ---
RECEIVED REPORT FROM DAY NURSE MICHEAL RN PT OPENS EYES SPONTANEOUSLY, BUT DOES NOT FOLLOW COMMANDS. PT IS TRACH TO T-PIECE TO HUMIDIFIED AIR AT 6/L MIN WITH NO S/S OF ACUTE RESPIRATORY DISTRESS AT THIS TIME. MULTI OPERATION FORMING MACHINE SETTER SHOWS SINUS TACH AT THIS TIME. PT HAS RIGHT FA #20 IV SITE RUNNING NS AT 125ML/HR WITH GOOD BLOOD RETURN NOTED. PT HAS LEFT CHEST TUBE DRAINING VIA GRAVITY AT BEDSIDE. PT HAS G-TUBE IN PLACE RUNNING NUTREN PULMONARY AT 60 ML/HR WITH NO GASTRIC RESIDUAL ASPIRATED AT THIS TIME. PT SKIN NON-INTACT WITH STAGE 2 ON SACRAL WOUND NOTED OPEN TO AIR. SCDS IN PLACE PT IS ON CONTACT PRECAUTIONS, SAFETY PRECAUTIONS MAINTAINED, HOB UP BED IN LOW POSITION WILL CONTINUE TO CLOSELY MONITOR.
--- NOTE | 2016-06-10 20:41 | NUR ---
OH HERE ON UNIT TO EVALUATE PT AT BEDSIDE
--- NOTE | 2016-06-10 21:15 | NUR ---
PT'S MOTHER AT BEDSIDE TO SEE PATIENT. NO S.S OF SOB NOTED AT THIS TIME. WILL CONTINUE TO MONITOR.
[2016-06-11] VITALS (13 sets, daily range): BP systolic 113–131; BP diastolic 62–80
--- NOTE | 2016-06-11 00:03 | NUR ---
PT TURNED REPOSITIONED, ORAL CARE GIVEN VIA VAP. PT SUCTIONED. NO S/S OF ACUTE DISTRESS, NO FEVER NOTED. SAFETY PRECAUTIONS STILL MAINTAINED, CONTACT PRECAUTIONS STILL MAINTAINED. WILL CONTINUE TO CLOSELY MONITOR.
[2016-06-11] MEDS: Z-GUARD PASTE TP SCH ×2 (01:03→13:00)
[2016-06-11] MEDS: ALBUTEROL SULFATE/IPRATROPIU 3 ML SOL IH SCH ×4 (01:50→19:43)
--- NOTE | 2016-06-11 01:55 | NUR ---
TX NOT GIVEN DUE TO HIGH HEART RATE 131 RR 22 RN VENECIA NOTIFIED PT IS RESTING
--- NOTE | 2016-06-11 02:31 | NUR ---
PT RESTING IN BED. NO SOB NOTED AT THIS TIME. WILL CONTINUE TO CLOSELY MONITOR.
[2016-06-11] MEDS: NACL 0.9% 1,000 ML IV SCH ×3 (03:41→18:25)
[2016-06-11] MEDS: CEFEPIME 2,000 MG in DEXTROSE 5% 100 ML IV SCH ×3 (04:02→22:14)
--- NOTE | 2016-06-11 05:13 | NUR ---
MORNING CARE RENDERED. PT CLEANED, LINEN CHANGED, NO SOB NOTED AT THIS TIME. SAFETY PRECAUTIONS MAINTAINED, CONTACT PRECAUTIONS MAINTAINED, NO S/S OF DISCOMFORT. BED IN LOW POSITION, HOB UP. WILL CONTINUE TO CLOSELY MONITOR.
[2016-06-11] MEDS: METOCLOPRAMIDE 10 MG/10 ML SYRP UDC GT SCH ×3 (05:33→17:29)
[2016-06-11] MEDS: VANCOMYCIN 750 MG in DEXTROSE 5% 250 ML IV SCH ×3 (05:33→23:12)
--- NOTE | 2016-06-11 06:39 | NUR ---
BREATHING WITHHELD DUE TO HIGH HEART OF 132 RR 24 RN VENECIA NOTIFIED
[2016-06-11 06:44] LABS: ANION GAP 13.3 (8-16); CALCIUM 8.8 mg/dL (8.5-10.1); CARBON DIOXIDE 24.6 mmol/L (21-32); CREATININE 0.5 mg/dL (0.6-1.3); POTASSIUM 3.9 mmol/L (3.5-5.1)
--- NOTE | 2016-06-11 06:54 | NUR ---
PT RESTING IN BED. NO SOB NOTED AT THIS TIME. FEEDING PUMP CHANGED, TUBE FEEDING BAG AND TUBES CHANGED. WILL CONTINUE TO CLOSELY MONITOR.
[2016-06-11 07:01] LABS: HEMATOCRIT 27.9 % (36-52); HEMOGLOBIN 9.1 g/dL (12.0-18.0); MEAN CORPUSCULAR HEMOGLOBIN 30 pg (27-31); MEAN CORPUSCULAR HGB CONC 33 g/dL (33-37); MEAN CORPUSCULAR VOLUME 93 fL (80-94); WHITE BLOOD COUNT (AUTO) 17.4 K/uL (4.8-10.8)
[2016-06-11 07:05] LABS: PLATELET COUNT (AUTO) 926 K/uL (140-450)
--- NOTE | 2016-06-11 07:07 | NUR ---
ENDORSED PLAN OF CARE TO DAY NURSE RYAN BURTON FOR CONTINUATION OF CARE. PT STABLE AT THIS TIME.
[2016-06-11 07:21] LABS: MAGNESIUM 1.8 mg/dL (1.8-2.4)
--- NOTE | 2016-06-11 07:30 | NUR ---
RECEIVED PT FROM GARMENT CUTTER VENECIA RN. PT OPENS EYES,NON VERBAL, NO RESPONSIVE TO NAME STIMULI. PUPILS UNEQUAL, RIGHT EYE SLIGHTLY OPEN, LEFT EYE IS RED .MONITOR SHOWS ST 135 AT THIS TIME. PT TRACH TO T-PIECE TO HUMIDIFIED AIR AT 6L/MIN WITHOUT S/S OF RESPIRATORY DISTRESS. ABDOMEN SOFT, G-TUBE IN PLACE WITH NUTREN PULMONARY AT 60 ML/HR, NO RESIDUAL NOTED. LEFT CHEST TUBE IN PLACE DRAINING VIA GRAVITY AT BEDSIDE. SKIN NON INTACT ( SEE WOUND ASSESSMENT). GRAHAM CATH IN PLACE WITH 300 ML CLEAR YELLOW URINE. SCDS IN PLACE, HOB ELEVATED 30 DEGREES WITH LOW BED POSITION. WILL CONTINUE TO MONITOR.
[2016-06-11 07:37] LABS: BAND % (MANUAL) 0 % (0-8); BASOPHILS % (MANUAL) 0 % (0-2); EOSINOPHILS % (MANUAL) 1 % (0-4); LYMPHOCYTES % (MANUAL) 17 % (20-46); MONOCYTES % (MANUAL) 6 % (5-12); NEUTROPHILS % (MANUAL) 76 (43-65); PLATELET ESTIMATE INCREASED
--- NOTE | 2016-06-11 08:00 | NUR ---
ORAL CARE GIVEN, TURNED AND REPOSITIONED PT.
[2016-06-11] MEDS: ASCORBIC ACID 500 MG/5 ML ORASYR GT SCH (08:09)
[2016-06-11] MEDS: MULTIVITAMIN 5 ML ORASYR GT SCH (08:09)
[2016-06-11] MEDS: METOPROLOL 50 MG TAB GT SCH ×2 (08:10→21:03)
[2016-06-11] MEDS: LACTOBACILLUS RHAMNOSUS GG 1 EACH CAP PO SCH (08:11)
[2016-06-11] MEDS: MUPIROCIN 2% OINT 22 GM TUBE TP SCH (08:11)
[2016-06-11] MEDS: ENOXAPARIN 40 MG/0.4 ML SYR SUBQ SCH (09:10)
--- NOTE | 2016-06-11 10:05 | NUR ---
TURNED AND REPOSITIONED PT. NO S/S OF RESPIRATORY DISTRESS NOTED.
--- NOTE | 2016-06-11 10:15 | NUR ---
[facility] MOLECULAR BIOLOGY SCIENTIST ESTRADA [phone] CALLED IN TO REQUEST FOR PT TRANSFERRING INFORMATION. FAXED TO [facility] MOLECULAR BIOLOGY SCIENTIST [phone].
[2016-06-11] MEDS: FLUCONAZOLE 200 MG/NS PREMIX 100 ML IV SCH (10:40)
--- NOTE | 2016-06-11 10:50 | NUR ---
PT'S MOTHER AT BEDSIDE.
--- NOTE | 2016-06-11 11:50 | NUR ---
DR. AMBROCIO IN TO ASSESS PT. UPDATEDPT'S CONDITION . WILL FOLLOW UP.
--- NOTE | 2016-06-11 12:00 | NUR ---
DR. AMBROCIO AWARE PT HAS ST [address]. PER [address] AMBROCIO ST CAUSES FROM THE BRAIN. NO FEVER AT THIS TIME.
--- NOTE | 2016-06-11 12:57 | NUR ---
RECEIVED PT ON 30 C.A. HHN WITHHELD DUE TO HIGH HEART RATED I\L LAVAGE AND SX COPIOUS YELLOW DRAIN H20 BAG REPLACE H20 BOTTLE PT FLACA SALGADO DCT 6 IS SECURE
[2016-06-11] MEDS: ACETAMINOPHEN 650 MG/20.3 ML UDC GT PRN (14:46)
--- NOTE | 2016-06-11 14:46 | NUR ---
ORAL TEMP CHECKED 101, TYLENOL GIVEN ORDERED. COOL MEASURE IN PLACE. WILL RECHECK.
--- NOTE | 2016-06-11 15:10 | NUR ---
ORAL TEMP CHECKED 100.2
--- NOTE | 2016-06-11 15:40 | NUR ---
ORAL TEMP CHECKED 98.8
[2016-06-11] MEDS: BISACODYL 10 MG SUPP RC PRN (15:43)
--- NOTE | 2016-06-11 17:50 | NUR ---
PT HAD LARGE AMOUNT OF LOOSE GREENISH STOOL, CLEANED PT. TURNED AND REPOSITIONED PT. SUCTIONED PT WITH THICK YELLOW MODERATE AMOUNT OF SPUTUM.
--- NOTE | 2016-06-11 18:34 | NUR ---
PT'S MOTHER PRESENT AT BEDSIDE.
--- NOTE | 2016-06-11 18:49 | NUR ---
UNABLE TO SEND C-DIFF SPECIMEN TO LAB DUE TO PT IS NOT QUALIFIED FOR C-DIFF CRITERIA.
--- NOTE | 2016-06-11 19:43 | NUR ---
RECEIVED ON A COOL AEROSOL AT 28%/6 LPM ON AND FUNCTIONING WELL TO A REMIGIOLEY #6 DCT AIRWAY SECURED WITH A ROYAL TRACH TIE CUFF PRESSURE CHECKED AMBU BAG NOTE AT HOB LOC AWAKE BREATH SOUNDS COARSE RHONCHI BILATERAL WITH GOOD CHEAT RISE DEEP TRACHEAL SUCTION FOR LARGE THICK YELLOW SECRETINS AIRWAY PATENT
--- NOTE | 2016-06-11 20:00 | NUR ---
TURNED AND REPOSITIONED PT. ORAL CARE GIVEN. NO S/S OF RESPIRATORY DISTRESS NOTED.
[2016-06-11] MEDS: metroNIDAZOLE 500 MG/NS PREMIX 100 ML IV SCH (21:03)
--- NOTE | 2016-06-11 22:05 | NUR ---
MONITOR SHOWS ST. PT UNRESPONSIVE TO NAME STIMULI. NO S/S OF RESPIRATORY DISTRESS NOTED.
--- NOTE | 2016-06-11 23:40 | NUR ---
ENDORSED PT TO ZAY RN. PT IN STABLE CONDITION AT THIS TIME. NO SOB.
[2016-06-12] VITALS (8 sets, daily range): BP systolic 103–124; BP diastolic 57–75
[2016-06-12] MEDS: METOCLOPRAMIDE 10 MG/10 ML SYRP UDC GT SCH ×3 (00:17→12:22)
[2016-06-12] MEDS: ALBUTEROL SULFATE/IPRATROPIU 3 ML SOL IH SCH ×3 (01:48→13:31)
--- NOTE | 2016-06-12 01:49 | NUR ---
ASLEEP RESTING WELL BREATH SOUNDS RHONCHI BILATERAL GOOD CHEST RISE DEEP TRACHEAL SUCTION FOR MODERATE THICK YELLOW SECRETIONS AIRWAY PATENT
[2016-06-12] MEDS: Z-GUARD PASTE TP SCH ×2 (03:00→13:12)
--- NOTE | 2016-06-12 04:15 | NUR ---
MORNING BED BATH; KEPT CLEAN DRY AND COMFORTABLE.
[2016-06-12] MEDS: NACL 0.9% 1,000 ML IV SCH ×3 (05:16→17:01)
[2016-06-12] MEDS: metroNIDAZOLE 500 MG/NS PREMIX 100 ML IV SCH ×2 (05:33→12:21)
[2016-06-12] MEDS: CEFEPIME 2,000 MG in DEXTROSE 5% 100 ML IV SCH ×2 (05:34→14:02)
[2016-06-12] MEDS: VANCOMYCIN 750 MG in DEXTROSE 5% 250 ML IV SCH ×2 (05:34→13:10)
--- NOTE | 2016-06-12 05:55 | NUR ---
AWAKE STABLE BREATH SOUNDS RHONCHI BILATERAL GOOD CHEST RISE DEEP TRACHEAL SUCTIN FOR MODERATE THICK YELLOW SECRETIONS AIRWAY PATENT CHANGED: AEROSOL STERILE WATER AND PORTEX SUCTION CATHETER
--- NOTE | 2016-06-12 07:00 | NUR ---
BREATHING TX WITHHELD DUE TO HIGH HEART RATE OF 140 RR 24 AND RN ZAY NOTIFIED
--- NOTE | 2016-06-12 07:06 | NUR ---
ENDORSED TO AM SHIFT RYAN CLEMENTE FOR CONTINUITY OF CARE.
--- NOTE | 2016-06-12 07:30 | NUR ---
RECEIVED FROM ZAY RN, PT OPENS EYES SPONTANEOUSLY, DOES NOT TRACK, DOES NOT FOLLOW COMMANDS. TRACH SHILEY 6 TO T PIECE FI02 28%. COUGHS OCC. SUCTIONED VIA TRACH SMALL AMT WHITISH SECRETIONS. LEFT CHEST TO PLEUREVAC GRAVITY DRKesha . PINKISH NOTED. IN SR. IV 0.9 NS AT 125 ML/HR INFUSING VIA RT FA IV SITE.
[2016-06-12] MEDS: MULTIVITAMIN 5 ML ORASYR GT SCH (08:31)
[2016-06-12] MEDS: METOPROLOL 50 MG TAB GT SCH (08:32)
[2016-06-12] MEDS: ASCORBIC ACID 500 MG/5 ML ORASYR GT SCH (08:32)
[2016-06-12] MEDS: LORazepam 2 MG/ML VIAL IVP PRN ×2 (08:33→16:10)
--- NOTE | 2016-06-12 08:33 | NUR ---
PT. IS IN ST WITHOUT ECTOPICS, RR 26 TO 28/MIN, TACHYPNEIC. ATIVAN 2 MG IVP GIVEN. POSITION OF COMFORT.
[2016-06-12] MEDS: ENOXAPARIN 40 MG/0.4 ML SYR SUBQ SCH (08:45)
--- NOTE | 2016-06-12 09:00 | NUR ---
ST, HR 102/MIN. RR 20/MIN.
[2016-06-12] MEDS: LACTOBACILLUS RHAMNOSUS GG 1 EACH CAP PO SCH (09:01)
--- NOTE | 2016-06-12 10:04 | NUR ---
CM NOTE CONCURRENT REVIEW AND ORDER FOR LTAC SENT TO [facility] FAX# [phone] PH# LOREN [phone]
--- NOTE | 2016-06-12 10:30 | NUR ---
MOTHER VISITING AT BEDSIDE. UPDATED ON PT'S CONDITION.
[2016-06-12] MEDS: FLUCONAZOLE 200 MG/NS PREMIX 100 ML IV SCH (11:26)
--- NOTE | 2016-06-12 11:39 | NUR ---
EUGENE [place] SPOKE WITH AIDAN OF [facility] AND SHE SAID THE PATIENT WILL BE GOING TO [facility] RM 301 BED B, BED WILL BE READY AFTER 2PM TODAY. NUMBER TO CALL FOR REPORT IN [facility] IS # [phone]. SPOKE WITH EUGENE PIMENTEL OF [facility] AND SHE SAID AMBULANCE AUTH# [id number]. SPOKE WITH NURSE CLEMENTE OF ICU EXT [phone] AND INFORMED HER AND SHE SAID SHE WILL SET UP PATIENT TRANSPORT FOR ADAPTIVE PHYSICAL EDUCATOR TODAY AFTER 2PM.
--- NOTE | 2016-06-12 11:45 | NUR ---
PER [employer] MACHINE TENDER ALFRED HAS A BED FOR THE PT. CALLED PT'S BROTHER COLLINS TRAYLOR RE: TRANSFER TO [facility]. CONSENT OBTAINED. STATES HE WOULD TELL HIS MOTHER.
--- NOTE | 2016-06-12 12:43 | NUR ---
06/12/16 RD FOLLOW UP COMPLETED PLEASE REFER TO NUTRITION PROGRESS NOTE UNDER CARE ACTIVITY FOR ESTIMATED NUTRITION NEEDS RD RECOMMENDATIONS: 1. CONTINUE NUTRITION SUPPORT NUTREN PULMONARY AT 60 ML/HR WITH 60 ML FREE WATER FLUSH Q6H VIA GTUBE TOLERATED PER MD 2. RD WILL F/U 2-3 DAYS; HIGH RISK. WAYLON PHILLIPS RD
--- NOTE | 2016-06-12 15:00 | NUR ---
REPORT GIVEN TO FRIDA ETIENNE RN IN [place].
[2016-06-12] MEDS ORDERED: ACET-2619 GT (15:29)
[2016-06-12] MEDS ORDERED: PRON INH (15:33)
[2016-06-12] MEDS ORDERED: BISA5ECT43 RC (15:34)
[2016-06-12] MEDS ORDERED: CEFE2SOL IV (15:36)
[2016-06-12] MEDS ORDERED: LOV40I SUBQ (15:36)
[2016-06-12] MEDS ORDERED: [UNRECOGNIZED DRUG - CODE] IV (15:38)
[2016-06-12] MEDS ORDERED: [UNRECOGNIZED DRUG - CODE] IV (15:38)
[2016-06-12] MEDS ORDERED: IPRA3AMP IH (15:38)
[2016-06-12] MEDS ORDERED: LACT10CA PO (15:41)
[2016-06-12] MEDS ORDERED: LORA2SOL IJ (15:43)
[2016-06-12] MEDS ORDERED: METR500S14 IV (15:45)
[2016-06-12] MEDS ORDERED: ZGUARD TP (15:46)
[2016-06-12] MEDS ORDERED: MORP1SYR3 IV (15:48)
[2016-06-12] MEDS ORDERED: MORP1SOL IV (15:48)
[2016-06-12] MEDS ORDERED: ONDA2SOL74 IJ (15:50)
[2016-06-12] MEDS ORDERED: VANC750P6 IV (15:51)
--- NOTE | 2016-06-12 16:10 | NUR ---
IN ST HR 130'S, RR 30/MIN. EYES CLOSED. FLACC 0. ATIVAN 2 MG IVP GIVEN.
--- NOTE | 2016-06-12 16:15 | NUR ---
[facility] CALLED. WILL BE LATE AN HOUR IN PICKING UP PT. [facility] EXEC NOTIFIED. ALFRED NOTIFIED.
--- NOTE | 2016-06-12 16:26 | NUR ---
UNABLE TO COLLECT STOOL FOR C DIF. NO BM YET.
--- NOTE | 2016-06-12 16:45 | NUR ---
TRACH CARE DONE CHANGED TRACH GAUZE AND SXN PT MODERATE AMT OF YELLOW SECRETIONS PT IS RESTING WITH NO SIGNS OF DISTRESS NOTED
--- NOTE | 2016-06-12 17:00 | NUR ---
REMAINS IN ST HR 127/MIN. RR 30/MIN. TACHYPANEIC BUT NOT LABORED.
--- NOTE | 2016-06-12 17:15 | NUR ---
DISCHARGED TO [facility]. TRACH TO T PIECE 28%. NO RESP. DISTRESS NOTED. LEFT CHEST TUBE INTACT AND PATENT, TOTAL 150 ML OUTPUT. G TUBE CLAMPED.
== END 2016-06-12 17:15 | DRG 720 ==
LOC: MED 14:23 → MIC 19:57
PROVIDERS: ADMIT Internal Medicine Pulmonary Disease; ATTEND Internal Medicine Pulmonary Disease
PROC: 0W9B30Z Drainage of Left Pleural Cavity with Drainage Device, Percutaneous Approach (ICD-10-PCS; principal; 2016-06-04)
PROC: 0BC78ZZ Extirpation of Matter from Left Main Bronchus, Via Natural or Artificial Opening Endoscopic (ICD-10-PCS; 2016-06-04)
DX: A41.9 Sepsis, unspecified organism (principal); J96.21 Acute and chronic respiratory failure with hypoxia; G93.40 Encephalopathy, unspecified; Z99.11 Dependence on respirator [ventilator] status; R40.3 Persistent vegetative state; J15.1 Pneumonia due to Pseudomonas; J90 Pleural effusion, not elsewhere classified; G91.9 Hydrocephalus, unspecified; E86.0 Dehydration; J44.0 Chronic obstructive pulmonary disease with (acute) lower respiratory infection; T17.590A Other foreign object in bronchus causing asphyxiation, initial encounter; Z93.0 Tracheostomy status; R13.10 Dysphagia, unspecified; G40.909 Epilepsy, unspecified, not intractable, without status epilepticus; G93.89 Other specified disorders of brain; J94.8 Other specified pleural conditions; I10 Essential (primary) hypertension; B96.89 Other specified bacterial agents as the cause of diseases classified elsewhere; J45.909 Unspecified asthma, uncomplicated; J98.19 Other pulmonary collapse; X58.XXXA Exposure to other specified factors, initial encounter; Y99.8 Other external cause status; Y92.89 Other specified places as the place of occurrence of the external cause; Y93.89 Activity, other specified; Z87.820 Personal history of traumatic brain injury; Z98.890 Other specified postprocedural states; Z87.891 Personal history of nicotine dependence; Z93.1 Gastrostomy status; Z87.828 Personal history of other (healed) physical injury and trauma; Z87.440 Personal history of urinary (tract) infections; Z22.322 Carrier or suspected carrier of Methicillin resistant Staphylococcus aureus; Z98.2 Presence of cerebrospinal fluid drainage device
CPT/HCPCS: 36415; 36600; 70250; 71010; 71020; 71260; 72040; 74020; 80048; 80053; 80202; 81001; 81003; 82550; 82553; 82803; 82945; 83605; 83735; 83874; 83880; 84100; 84484; 85025; 85610; 85730; 87040; 87070; 87075; 87081; 87086; 87186; 87205; 88304; 89220; 93005; 94640; 94761; 99291; J0692; J1450; J1650; J1956; J2001; J2060; J2270; J2543; J2920; J3010; J3370; J3475; J3490; J7030; J7060; J7613; J7620; J8597; Q0092; Q9967

== ENCOUNTER 2018-01-06 01:47 | Inpatient (IN) | payer OTHER ==
[~2018-01-06] VITALS: Ht 172.7 cm; Wt 89.8 kg
[~2018-01-06 01:47] MED LIST changes: -ACET-2869 GT; +ALBU3SOL83 IH; +BISA5ECT43 RC; +CEFE2SOL IV; -CRAN450C GT; +HYDR-5122 GT; +LACT10CA PO; +LORA2SOL IJ; +LOV40I SUBQ; +METR500S14 IV; +MORP1SOL IV; +MORP1SYR3 IV; +ONDA2SOL74 IJ; +PRON INH; +VANC750P10 IV; +ZGUARD TP; +[UNRECOGNIZED DRUG - CODE] IV
[2018-01-06 01:48] VITALS: BP 113/68
--- NOTE | 2018-01-06 01:48 | NUR ---
22/M BIBA FROM [facility] FOR PERSISTENT VOMITING X 2 DAYS. DENIES HEMATEMESIS. BS ACTIVE X4, ABD SOFT AND FLAT. GTUBE IN PLACED, OLD SCAR NOTED MIDLINE. PT FEBRILE ON ARRIVAL. PT IS ON TRACH TO 3LPM, NO RESPIRATORY DISTRESS NOTED AT THIS TIME. PMH: TRACH, GTUBE, SEIZURES
--- NOTE | 2018-01-06 01:54 | NUR ---
# 14 FR Urinary catheter inserted utilizing sterile technique. Immediate return of 400 ml DARK YELLOW urine noted. Urine sample collected and sent to lab. Pt tolerated procedure WELL.
[2018-01-06] MEDS ORDERED: NACL 0.9% 2,000 ML IV ONE (01:55)
[2018-01-06] MEDS ORDERED: ONDANSETRON 4 MG/2 ML VIAL IVP ONE (01:55)
[2018-01-06 02:19] LABS: APPEARANCE,URINE CLEAR (CLEAR); BILIRUBIN,URINE NEGATIVE (NEGATIVE); BLOOD, URINE NEGATIVE (NEGATIVE); COLOR,URINE YELLOW (YELLOW); LEUKOCYTE ESTERASE ,URINE NEGATIVE (NEGATIVE); NITRITE, URINE NEGATIVE (NEGATIVE); PH,URINE 7.5 (5.0-9.0); UGLUCOSE NEGATIVE (NEGATIVE)
--- NOTE | 2018-01-06 02:20 | NUR ---
BROWN EMESIS X1 NOTED. ER MADE AWARE.
[2018-01-06] MEDS ORDERED: ACETAMINOPHEN 650 MG SUPP RC ONE ×2 (02:29→02:35)
[2018-01-06 02:33] LABS: CREATININE 0.9 mg/dL (0.7-1.3)
[2018-01-06] MEDS ORDERED: PIPERACILLIN/TAZOBACTAM 3.375 GM in DEXTROSE 5% 50 ML IV ONE ×2 (02:40→09:00)
[2018-01-06 02:44] LABS: ALBUMIN 2.9 g/dL (3.4-5.0); TOTAL BILIRUBIN 0.5 mg/dL (0.0-1.0)
[2018-01-06] MEDS ORDERED: MULT-492 PEG (02:48)
[2018-01-06] MEDS ORDERED: LACT10SO1 PEG (02:48)
[2018-01-06] MEDS ORDERED: DOCU-299 PEG (02:48)
[2018-01-06] MEDS ORDERED: ASCO500T45 PEG (02:48)
[2018-01-06] MEDS ORDERED: CRAN450T4 PEG (02:48)
[2018-01-06 02:50] LABS: PROTHROMBIN TIME 10.4 secs (10.8-13.4)
[2018-01-06] MEDS ORDERED: NACL 0.9% 500 ML IV ONE (02:50)
[2018-01-06] MEDS ORDERED: PIPERACILLIN/TAZOBACTAM 3.375 GM VIAL IV ONE (03:07)
[2018-01-06] MEDS ORDERED: OSELTAMIVIR PHOSPHATE 75 MG CAP PO ONE (03:10)
--- NOTE | 2018-01-06 03:15 | NUR ---
NURSE ORE DRESSING ENGINEER CALLED FOR [facility]
[2018-01-06 03:30] LABS: HEMATOCRIT 47.3 % (36-52); HEMOGLOBIN 15.9 g/dL (12.0-18.0); MEAN CORPUSCULAR HEMOGLOBIN 32 pg (27-31); MEAN CORPUSCULAR HGB CONC 34 g/dL (33-37); MEAN CORPUSCULAR VOLUME 96.4 fL (80-94); PLATELET COUNT (AUTO) 291 K/uL (140-450); RED BLOOD CELL COUNT(AUTO) 4.91 MIL/uL (4.20-6.10); RED CELL DISTRIBUTION WIDTH 13.3 % (11.6-13.7)
[2018-01-06] MEDS ORDERED: OSELTAMIVIR PHOSPHATE 75 MG CAP ONE (03:34)
--- NOTE | 2018-01-06 03:48 | NUR ---
RT AT BEDSIDE
[2018-01-06 03:53] LABS: BASOPHILS % (MANUAL) 0 % (0-2); EOSINOPHILS % (MANUAL) 0 % (0-4); LYMPHOCYTES % (MANUAL) 6 % (20-46); METAMYELOCYTES % 1 % (0-0); MONOCYTES % (MANUAL) 4 % (5-12)
[2018-01-06] MEDS ORDERED: LEVOFLOXACIN 750 MG/D5W PREMIX 150 ML IV ONE (04:25)
--- NOTE | 2018-01-06 04:42 | NUR ---
PT VOMITED DURING NGT INSERTION, ER MADE AWARE. DC NGT INSERTION.
[2018-01-06] MEDS ORDERED: NACL 0.9% 1,000 ML IV ONE (05:05)
[2018-01-06] MEDS ORDERED: VANCOMYCIN PER PHARMACY MC PRN (05:05)
--- NOTE | 2018-01-06 05:36 | NUR ---
Patient will be admitted to [facility]. Admited to TELE. Will go to room 115. Belongings list completed. Report to TANYA DAVIS.
--- NOTE | 2018-01-06 05:40 | NUR ---
RECEIVED REPORT FROM DAYSHIFT NURSE AT BEDSIDE FOR CONTINUITY OF CARE. PT AWAKE, APHASIC. NO SOB NO S/S OF DISTRESS ON TRACH TO VENT 2L. HAS NJ TUBE TO SUCTION(XRAY PLACEMENT HAS NOT BEEN VERIFIED AWAITING RESULTS. . ALSO HAS G-TUBE PATENT. INCONTINENT WITH DIAPER. IV NOTED WRIST 22G AND R HAND 20 RUNNING WITH LEVAQUIN. BED LOWERED BED ALARM PLACED CALL LIGHT WITHIN REACH WILL CONTINUE TO MONITOR.
[2018-01-06] MEDS ORDERED: VANCOMYCIN 1GM/DEXT 5% PREMIX 200 ML IV SCH ×2 (06:00→09:00)
[2018-01-06] MEDS ORDERED: VANCOMYCIN 1,000 MG VIAL ONE (06:37)
--- NOTE | 2018-01-06 07:26 | NUR ---
ENDORSED REPORT TO [facility] FOR CONTINUITY OF CARE.
--- NOTE | 2018-01-06 07:27 | NUR ---
RECEIVED REPORT FROM BRACE END MAINSPRING FORMER NURSE. PATIENT LYING DOWN IN BED. NO DISTRESS NOTED. SINUS TACHYCARDIA NOTED. IV SITE INTACT, PATENT AND INFUSING IVF PER MD ORDERS. AAOX1, APHASIC, SKIN COLOR APPROPRIATE TO ETHNICITY, WARM TO TOUCH. SKIN IS INTACT. TRACH TO O2 WITH HUMIDIFER AT 6L/MIN WITH O2 SAT AT 94-95%. BLUE CONTRACTURES NOTED. GTUBE SITE INTACT, PATENT. REVIEWED PLAN OF CARE WITH PATIENT. PATIENT VERBALIZED UNDERSTANDING. SAFETY MEASURES IN PLACE, CALL LIGHT WITHIN REACH. WILL CONTINUE TO MONITOR.
[2018-01-06 08:00] VITALS: BP 117/71
[2018-01-06 09:52] LABS: MAGNESIUM 1.7 mg/dL (1.8-2.4); PHOSPHORUS 4.1 mg/dL (2.5-4.9)
[2018-01-06] MEDS ORDERED: MAGNESIUM CITRATE 300 ML BTL PO SCH (11:45)
[2018-01-06 12:00] VITALS: BP 116/76
--- NOTE | 2018-01-06 12:00 | NUR ---
STARTED TO GIVE MAG CITRATE VIA GTUBE PER DR. IRWIN ORDERS, PATIENT STARTED TO VOMIT AFTER 50 ML GIVEN. PERFORMED ORAL AND TRACH SUCTIONING. NGTUBE INTERMITTENT SUCTIONING TURNED BACK ON. WILL NOTIFY DR. IRWIN. WILL CONTINUE TO MONITOR.
[2018-01-06] MEDS: PIPERACILLIN/TAZOBACTAM 4.5 GM in DEXTROSE 5% 100 ML IV SCH ×2 (12:07→18:11)
--- NOTE | 2018-01-06 13:40 | NUR ---
PAGED DR. IRWIN AND CALLED BACK. NOTIFIED HIM OF PATIENT VOMITING AFTER 50 ML OF MAG CITRATE GIVEN. PER DC, CANCEL SBO FOLLOW THOUGH XRAY. WILL CONTINUE TO MONITOR.
--- NOTE | 2018-01-06 15:00 | NUR ---
MOTHER AT BEDSIDE. NO DISTRESS NOTED. CONDITION UNCHANGED. WILL CONTINUE TO MONITOR.
[2018-01-06 16:00] VITALS: BP 114/68
[2018-01-06] MEDS: VANCOMYCIN 1GM/DEXT 5% PREMIX 200 ML IV SCH ×2 (16:15→23:29)
--- NOTE | 2018-01-06 17:00 | NUR ---
PATIENT LYING DOWN IN BED. NO DISTRESS NOTED. PERFORMED ORAL CARE AND SUCTIONING. SCHEDULED MEDICATIONS DUE GIVEN. WILL CONTINUE TO MONITOR.
--- NOTE | 2018-01-06 18:14 | NUR ---
SCHEDULED MEDICATIONS DUE GIVEN. NO DISTRESS NOTED. CONDITION UNCHANGED. WILL CONTINUE TO MONITOR.
--- NOTE | 2018-01-06 19:35 | NUR ---
GAVE REPORT TO AGRISCIENCE INSTRUCTOR NURSE FOR CONTINUITY OF CARE. PATIENT IN STABLE CONDITION.
--- NOTE | 2018-01-06 19:36 | NUR ---
RECEIVED PT FROM DAY SHIFT NURSE GEORGE-RN AT BEDSIDE. PT RESTING IN BED. AOX1, NON-VERBAL, APHASIC, BED BOUND ON TRACH TO O2 6L/MIN WITH HUMIDIFIER- 02 SAT 94-95% PER DAY SHIFT NURSE, WITH IV SITE LEFT WRIST #20G-SL, AND RIGHT NAND #22 RUNNING AT TKO 10ML/HR. SKIN INTACT WITH SCAN NOTED ON ABDOMEN-HEALED. SKIN COLOR APPROPRIATE TO ETHNICITY, WARM TO TOUCH. BLUE CONTRACTURES NOTED. G-TUBE SITE INTACT, PATENT. ON TELE MONITORING-SINUS TACHYCARDIA NOTED. BED IN LOWEST POSITION, BRAKES ON, BOTH SIDE RAILS UP, FALL PRECAUTIONS AND SEIZURE PRECAUTIONS IN PLACE. NO S/S OF RESPIRATORY DISTRESS OR DISCOMFORT NOTED AT THIS TIME. WILL CONTINUE TO MONITOR.
[2018-01-06 20:00] VITALS: BP 109/64
--- NOTE | 2018-01-06 20:00 | NUR ---
ORAL CARE GIVEN. PT TOLERATED WELL. NO S/S OF RESPIRATORY DISTRESS OR DISCOMFORT NOTED AT THIS TIME. WILL CONTINUE TO MONITOR.
--- NOTE | 2018-01-06 20:00 | NUR ---
VITAL SIGNS TAKEN AND TOLERATED WELL. NO S/S OF RESPIRATORY DISTRESS OR DISCOMFORT NOTED AT THIS TIME. WILL CONTINUE TO MONITOR.
[2018-01-06] MEDS: OSELTAMIVIR PHOSPHATE 75 MG CAP PO SCH (21:19)
--- NOTE | 2018-01-06 21:19 | NUR ---
SCHEDULED MEDICATION TAMIFLU GIVEN VIA G-TUBE AND TOLERATED WELL. NO S/S OF RESPIRATORY DISTRESS OR DISCOMFORT NOTED AT THIS TIME. WILL CONTINUE TO MONITOR.
--- NOTE | 2018-01-06 23:29 | NUR ---
SCHEDULED MEDICATION VANCOCIN GIVEN AND TOLERATED WELL. NO S/S OF RESPIRATORY DISTRESS OR DISCOMFORT NOTED AT THIS TIME. WILL CONTINUE TO MONITOR.
[2018-01-07] VITALS: BP 119/76
--- NOTE | 2018-01-07 | NUR ---
VITAL SIGNS TAKEN AND TOLERATED WELL. ORAL CARE GIVEN AND TOLERATED WELL. NO S/S OF RESPIRATORY DISTRESS OR DISCOMFORT NOTED AT THIS TIME. WILL CONTINUE TO MONITOR.
[2018-01-07] MEDS: PIPERACILLIN/TAZOBACTAM 4.5 GM in DEXTROSE 5% 100 ML IV SCH ×4 (01:09→17:34)
--- NOTE | 2018-01-07 01:09 | NUR ---
SCHEDULED MEDICATION ZOSYN GIVEN AND TOLERATED WELL. NO S/S OF RESPIRATORY DISTRESS OR DISCOMFORT NOTED AT THIS TIME. WILL CONTINUE TO MONITOR.
--- NOTE | 2018-01-07 02:00 | NUR ---
PT SLEEPING IN BED. NO S/S OF RESPIRATORY DISTRESS OR DISCOMFORT NOTED AT THIS TIME. WILL CONTINUE TO MONITOR.
[2018-01-07 04:00] VITALS: BP 114/74
--- NOTE | 2018-01-07 04:00 | NUR ---
VITAL SIGNS TAKEN AND TOLERATED WELL. NO S/S OF RESPIRATORY DISCOMFORT NOTED AT THIS TIME. WILL CONTINUE TO MONITOR.
--- NOTE | 2018-01-07 04:00 | NUR ---
ORAL CARE DONE. PT TOLERATED WELL. NO S/S OF RESPIRATORY DISCOMFORT NOTED AT THIS TIME. WILL CONTINUE TO MONITOR.
--- NOTE | 2018-01-07 05:30 | NUR ---
BOTH IV'S CAME OUT. NEW IV SITE LEFT HAND (THUMB) #24G IN PLACE AND INFUSING WELL. NEW IV INSERTED BY CHARGE NURSE ADRI ON SECOND ATTEMPT. PT TOLERATED WELL. NO S/S OF RESPIRATORY DISCOMFORT NOTED AT THIS TIME. WILL CONTINUE TO MONITOR.
--- NOTE | 2018-01-07 05:36 | NUR ---
SCHEDULED MEDICATION ZOSYN GIVEN AND TOLERATED WELL. NO S/S OF RESPIRATORY DISCOMFORT NOTED AT THIS TIME. WILL CONTINUE TO MONITOR.
[2018-01-07 07:03] LABS: ANION GAP 11.5 (8-16); CARBON DIOXIDE 27.6 mmol/L (21-32); CREATININE 0.7 mg/dL (0.7-1.3); POTASSIUM 4.1 mmol/L (3.5-5.1)
--- NOTE | 2018-01-07 07:19 | NUR ---
ENDORSED PT CARE TO DAY SHIFT NURSE ABRAHAM FOR CONTINUITY OF CARE.
--- NOTE | 2018-01-07 07:20 | NUR ---
RECEIVED REPORT FROM WOOD FUEL PELLETIZER NURSE. PT IS RESTING IN BED, SEMI FOWLERS POSITION, PT IS AAOX1, APHASIC, PT HAS BILATERAL UPPER EXTREMITY CONTRACTURES, NG-TUBE IN LEFT NARES WITH 500ML OF DARK GREEN OUTPUT IN CANISTER AT THIS TIME, PT IS ON TRACH TO O2, G-TUBE LUQ, IV ON THE LEFT THUMB, PATENT, INTACT, FLUSHING WELL, PT HAS INTERMITTENT COUGH, NO S/S OF DISTRESS OR DISCOMFORT NOTED, SKIN INTACT, DISCUSSED PLAN OF CARE WITH PT, PT UNABLE TO VERBALIZE UNDERSTANDING, SAFETY/FALL/SEIZURE PRECAUTIONS ARE IN PLACE, CALL LIGHT IS WITHIN REACH, WILL CONTINUE TO MONITOR.
--- NOTE | 2018-01-07 07:30 | NUR ---
SCHEDULED MEDICATION VANCOCIN GIVEN AND TOLERATED WELL. ENDORSED PT CARE TO DAY SHIFT NURSE PRICILA-RYAN FOR CONTINUITY OF CARE.
[2018-01-07] MEDS: VANCOMYCIN 1GM/DEXT 5% PREMIX 200 ML IV SCH ×3 (07:37→23:06)
[2018-01-07 08:00] VITALS: BP 123/81
--- NOTE | 2018-01-07 09:18 | NUR ---
PATIENT HAS BEEN SCREENED AND CATEGORIZED HIGH NUTRITION RISK. PATIENT WILL BE SEEN WITHIN 1-2 DAYS OF ADMISSION. 01/07/[address]
[2018-01-07] MEDS: OSELTAMIVIR PHOSPHATE 75 MG CAP PO SCH ×2 (09:24→21:22)
--- NOTE | 2018-01-07 09:36 | NUR ---
ADMINISTERED SCHEDULED TAMIFLU VIA G-TUBE. PATIENT TOLERATED MED WELL. ALL NEEDS MET AT THIS TIME. WILL CONTINUE TO MONITOR.
--- NOTE | 2018-01-07 10:52 | NUR ---
Floor Nurse Note: Per Norberto from [facility] , patient is on a 7 day bed hold and is one of their halfway patients. Patient's mother Evangelina Hurley is his healthcare decision maker. I called Evangelina, no answer, unable to leave message, I will call her later.
--- NOTE | 2018-01-07 11:58 | NUR ---
ADMINISTERED SCHEDULED ZOSYN VIA IVPB. PATIENT IV PATENT AND FLUSHING PROPERLY. ALL NEEDS MET AT THIS TIME. WILL CONTINUE FREQUENT ROUNDS.
[2018-01-07 12:00] VITALS: BP 112/69
[2018-01-07 13:13] LABS: BASOPHILS % (AUTO) 0.5 % (0.0-2.0); EOSINOPHILS % (AUTO) 0.2 % (0.0-4.0); HEMATOCRIT 31.4 % (36-52); HEMOGLOBIN 10.9 g/dL (12.0-18.0); LYMPHOCYTES # (AUTO) 1.5 K/uL (2.0-11.5); LYMPHOCYTES % (AUTO) 15.1 % (20.5-51.1); MEAN CORPUSCULAR HEMOGLOBIN 33 pg (27-31); MEAN CORPUSCULAR HGB CONC 35 g/dL (33-37); MEAN CORPUSCULAR VOLUME 95.2 fL (80-94); MONOCYTES # (AUTO) 1.1 K/uL (0.8-1.0); MONOCYTES % (AUTO) 10.8 % (1.7-9.3); NEUTROPHILS # (AUTO) 7.2 K/uL (1.8-7.7); NEUTROPHILS % (AUTO) 73.4 % (42.2-75.2); PLATELET COUNT (AUTO) 176 K/uL (140-450); RED CELL DISTRIBUTION WIDTH 13.1 % (11.6-13.7); WHITE BLOOD COUNT (AUTO) 9.8 K/uL (4.8-10.8)
--- NOTE | 2018-01-07 14:29 | NUR ---
SXN PT SMALL AMT OF SECRETIONS, CHANGED THEODORE TRACH CARE DONE Addendum: 01/07/18 at 1431 by Stefanie Adam RT CHANGED WATER
--- NOTE | 2018-01-07 14:45 | NUR ---
I PAGED DR. CRAWLEY TO ASK HIM IF HE WANTED TO PUT IN ANY HOME MEDICATION ORDERS.
--- NOTE | 2018-01-07 14:50 | NUR ---
01/07/18 RD INITIAL ASSESSMENT COMPLETED PLEASE REFER TO NUTRITION ASSESSMENT UNDER CARE ACTIVITY FOR ESTIMATED NUTRITIONAL NEEDS. 1. CONTINUE NPO MEDICALLY NECESSARY 2. IF/WHEN PATIENT IS MEDICALLY STABLE CONSIDER INITIATING TUBE FEED WITH VITAL AF 1.2 AT A GOAL RATE OF 70 ML/HR, STARTING AT 10 ML/HR, ADVANCING 20 ML/HR Q6H. -THIS WILL PROVIDE 1680 ML OF VOLUME, 2016 KCAL, AND 126 GM OF PROTEIN. THIS MEETS 100% OF ESTIMATED ENERGY AND PROTEIN NEEDS. 3. RECOMMEND FREE WATER FLUSH [address] TO FOLLOW-UP 2-3 DAYS, HIGH RISK DOV TAVERA RD
[2018-01-07 16:00] VITALS: BP 107/63
--- NOTE | 2018-01-07 17:30 | NUR ---
PAGED DR. CRAWLEY A SECOND TIME FOR MEDICATION ORDERS.
--- NOTE | 2018-01-07 17:52 | NUR ---
ADMINISTERED PATIENT SCHEDULED MEDICATIONS.PATIENT SLEEPING IN BED IN LEFT LATERAL POSITION. BED IS IN LOW POSITION WITH SEIZURE PRECAUTIONS IN PLACE. ALL NEEDS MET AT THIS TIME.
--- NOTE | 2018-01-07 19:07 | NUR ---
PT AWAKE AND QUIET. MOM AT BEDSIDE. TRACH PATENT, DRY AND CLEAN. VITALS STABLE:1009%, PULSE 101, RATE 16, BREATH SOUNDS COARSE. COOL AEROSOL BOTTLE AT ADEQUATE LEVEL AND FUNCTIONING. DRAIN BAG EMPTY. SUCTIONED X2 FOR SMALL AMOUNT OF THICK YELLOW SECRETIONS. AMBU BAG AT BEDSIDE.
--- NOTE | 2018-01-07 19:22 | NUR ---
ENDORSED PATIENT TO GLAZING DEPARTMENT SUPERVISOR NURSE FOR CONTINUITY OF CARE. PATIENT IN STABLE CONDITION. ALL NEEDS MET AT THIS TIME.
--- NOTE | 2018-01-07 19:23 | NUR ---
RECEIVED BEDSIDE REPORT FROM DAY SHIFT NURSE JONATHAN RN, PT STABLE, NO DISTRESS NOTED, IV TO L THUMB 24G, PATENT, INTACT, PT ON TRACH TO O2 6LPM, NO SOB NOTED, G TUBE IN PLACE NO RESIDUAL NOTED, NG TUBE IN PLACE TO THE L NARES PATENT, INTACT, DRAINING BLACK COLORED FLUIDS, PT ON DROPLET PRECAUTION, INITIAL ASSESSMENT DONE, ALL SAFETY PRECAUTION MET, CALL LIGHT WITHIN REACH, WILL CONTINUE TO MONITOR.
[2018-01-07 20:00] VITALS: BP 110/59
--- NOTE | 2018-01-07 21:22 | NUR ---
DUE MEDICATION ADMINISTERED PT TOLERATED WELL, NO DISTRESS NOTED, CALL LIGHT WITHIN REACH, WILL CONTINUE TO MONITOR.
--- NOTE | 2018-01-07 23:06 | NUR ---
DUE MEDICATION ADMINISTERED, PT TOLERATED WELL, NO DISTRESS NOTED, CALL LIGHT WITHIN REACH, WILL CONTINUE TO MONITOR.
[2018-01-07] MEDS ORDERED: VALP-22 GT (23:53)
[2018-01-07] MEDS ORDERED: CAR30 GT/PO (23:53)
[2018-01-08] VITALS: BP 109/72
[2018-01-08] MEDS: PIPERACILLIN/TAZOBACTAM 4.5 GM in DEXTROSE 5% 100 ML IV SCH ×3 (00:28→13:04)
--- NOTE | 2018-01-08 00:28 | NUR ---
DUE MEDICATION ADMINISTERED, V/S TAKEN, WNL, CALL LIGHT WITHIN REACH, WILL CONTINUE TO MONITOR.
--- NOTE | 2018-01-08 01:30 | NUR ---
WATERPROOFING SUPERVISOR BRANDY DAVIS, TALKED TO DR. CRAWLEY REGARDING PT IVF ORDER D5LR WITH 20MEQ KCL, PT LAST POTASSIUM LEVEL STATED TO GIVE MEDICATION FOR PT FOR MAINTENANCE.
[2018-01-08] MEDS: LACT RING IV SCH ×3 (02:24→20:37)
[2018-01-08] MEDS: POTASSIUM CHLORIDE IV SCH ×3 (02:24→20:37)
[2018-01-08] MEDS: DEXT 5% IV SCH ×3 (02:24→20:37)
--- NOTE | 2018-01-08 02:24 | NUR ---
IVF STARTED, PT TOLERATED WELL, NO DISTRESS NOTED, CALL LIGHT WITHIN REACH, WILL CONTINUE TO MONITOR.
[2018-01-08 04:00] VITALS: BP 118/77
--- NOTE | 2018-01-08 04:22 | NUR ---
CHECKED ON PT, PT RESTING, NO DISTRESS NOTED, CALL LIGHT WITHIN REACH, WILL CONTINUE TO MONITOR.
[2018-01-08] MEDS: VANCOMYCIN 1GM/DEXT 5% PREMIX 200 ML IV SCH ×2 (06:00→15:24)
--- NOTE | 2018-01-08 06:00 | NUR ---
AWAKE STABLE NO SOB NOTED GOOD CHEST RISE DEEP TRACHEAL SUCTION FOR MODERATE THIN PALE YELLOW SECRETIONS AIRWAY PATENT COOL AEROSOL TO TRACH FUNCTIONING WELL FIO2 28%/6LPM SATURATION 97% HR 107 RR 20 INLINE SUCTION CATHETER CHANGED
--- NOTE | 2018-01-08 07:15 | NUR ---
ENDORSED PT TO DAY SHIFT NURSE JONATHAN DAVIS, PT STABLE, NO DISTRESS NOTED, CALL LIGHT WITHIN REACH.
--- NOTE | 2018-01-08 07:20 | NUR ---
RECEIVED REPORT FROM SAIL FINISHER HAND NURSE. PT IS RESTING IN BED, SEMI FOWLERS POSITION, PT IS AAOX1, APHASIC, PT HAS BILATERAL UPPER EXTREMITY CONTRACTURES, NG-TUBE IN LEFT NARES WITH 625ML OF DARK GREEN OUTPUT IN CANISTER AT THIS TIME, PT IS ON TRACH TO O2, G-TUBE LUQ, IV ON THE LEFT THUMB, PATENT, INTACT, FLUSHING WELL, PT HAS INTERMITTENT COUGH, NO S/S OF DISTRESS OR DISCOMFORT NOTED, SKIN INTACT, DISCUSSED PLAN OF CARE WITH PT, PT UNABLE TO VERBALIZE UNDERSTANDING, SAFETY/FALL/SEIZURE PRECAUTIONS ARE IN PLACE, CALL LIGHT IS WITHIN REACH, WILL CONTINUE TO MONITOR.
[2018-01-08 08:00] VITALS: BP 118/78
[2018-01-08 08:06] LABS: BASOPHILS % (AUTO) 0.2 % (0.0-2.0); EOSINOPHILS % (AUTO) 0.2 % (0.0-4.0); HEMATOCRIT 30.4 % (36-52); HEMOGLOBIN 10.6 g/dL (12.0-18.0); LYMPHOCYTES # (AUTO) 1.2 K/uL (2.0-11.5); LYMPHOCYTES % (AUTO) 14.9 % (20.5-51.1); MEAN CORPUSCULAR HEMOGLOBIN 33 pg (27-31); MEAN CORPUSCULAR HGB CONC 35 g/dL (33-37); MEAN CORPUSCULAR VOLUME 94.7 fL (80-94); MONOCYTES % (AUTO) 12.7 % (1.7-9.3); NEUTROPHILS # (AUTO) 5.9 K/uL (1.8-7.7); PLATELET COUNT (AUTO) 177 K/uL (140-450); RED BLOOD CELL COUNT(AUTO) 3.22 MIL/uL (4.20-6.10); WHITE BLOOD COUNT (AUTO) 8.3 K/uL (4.8-10.8)
[2018-01-08] MEDS: OSELTAMIVIR PHOSPHATE 75 MG CAP PO SCH ×2 (09:54→21:00)
[2018-01-08 09:56] LABS: ALBUMIN 2.3 g/dL (3.4-5.0); ANION GAP 9.8 (8-16); CREATININE 0.7 mg/dL (0.7-1.3); POTASSIUM 3.8 mmol/L (3.5-5.1); TOTAL BILIRUBIN 0.4 mg/dL (0.0-1.0)
[2018-01-08 12:00] VITALS: BP 104/63
[2018-01-08] MEDS ORDERED: TAM75 PO (12:12)
[2018-01-08] MEDS ORDERED: Vancomycin Per Pharmacy MC (12:12)
[2018-01-08] MEDS ORDERED: PIPE1SOL IV (12:12)
--- NOTE | 2018-01-08 12:35 | NUR ---
NEW IV STARTED ON LEFT WRIST, #22, PT TOLERATED WELL, WILL CONTINUE TO MONITOR.
--- NOTE | 2018-01-08 14:03 | NUR ---
Initial review faxed to [facility] with H&P.
--- NOTE | 2018-01-08 14:09 | NUR ---
PT KUB COMPLETED AT BEDSIDE AT THIS TIME.
--- NOTE | 2018-01-08 15:00 | NUR ---
DR. CRAWLEY HERE TO SEE PATIENT. I ASKED DR. CRAWLEY WHAT THE PLAN WAS FOR PATIENT. PER DR. CRAWLEY WAIT FOR THE RESULTS OF TODAY'S KUB IF IT IS NEGATIVE START FEEDING TODAY AND ALSO NOTIFY DR. DIAMOND OF THE RESULTS.
[2018-01-08 16:00] VITALS: BP 109/70
--- NOTE | 2018-01-08 19:21 | NUR ---
ENDORSED PATIENT TO PAINT DIPPER NURSE FOR CONTINUITY OF CARE. PATIENT IN STABLE CONDITION. ALL NEEDS MET AT THIS TIME.
--- NOTE | 2018-01-08 19:30 | NUR ---
ASSUMED CARE OF PATIENT, AWAKE, NONVERBAL , NO DISTRESS NOTED. MOTHER AT BEDSIDE. CALL LIGHT WITHIN REACH. RING ATTACHER AT BEDSIDE. REPOSITIONED PATIENT. SUCTION SECRETION. NGT SUCTION OFF.
--- NOTE | 2018-01-08 20:00 | NUR ---
VITAL SIGNS STABLE. NO DISTRESS. CALL LIGHT WITHIN REACH.
[2018-01-08 20:12] VITALS: BP 109/70
--- NOTE | 2018-01-08 21:00 | NUR ---
CHILD ADVOCATE AT BEDSIDE FOR SB FOLLOW-THROUGH ORDERED.
--- NOTE | 2018-01-09 00:46 | NUR ---
REPOSITIONED TO LEFT SIDE LYING WITH SOLUTIONS EXECUTIVE CLOUD SALES. RESTING WELL, NO DISTRESS. SUCTION SECRETIONS. VITAL SIGNS STABLE. AFEBRILE. CALL LIGHT WITHIN REACH.
[2018-01-09 00:47] VITALS: BP 104/66
[2018-01-09] MEDS: DEXT 5% IV SCH ×2 (01:00→10:50)
[2018-01-09] MEDS: POTASSIUM CHLORIDE IV SCH ×2 (01:00→10:50)
[2018-01-09] MEDS: LACT RING IV SCH ×2 (01:00→10:50)
[2018-01-09 04:42] VITALS: BP 108/78
--- NOTE | 2018-01-09 04:44 | NUR ---
REPOSITIONED TO RIGHT SIDE LYING. VITAL SIGNS STABLE. AFEBRILE. CALL LIGHT WITHIN REACH.
--- NOTE | 2018-01-09 07:24 | NUR ---
ENDORSED CARE AT BEDSIDE WITH JEANE DAVIS, PATIENT IN STABLE CONDITION.
[2018-01-09 07:25] LABS: BASOPHILS % (AUTO) 0.2 % (0.0-2.0); EOSINOPHILS % (AUTO) 0.3 % (0.0-4.0); HEMATOCRIT 31.9 % (36-52); LYMPHOCYTES # (AUTO) 1.4 K/uL (2.0-11.5); LYMPHOCYTES % (AUTO) 22.4 % (20.5-51.1); MEAN CORPUSCULAR HEMOGLOBIN 33 pg (27-31); MEAN CORPUSCULAR HGB CONC 34 g/dL (33-37); MEAN CORPUSCULAR VOLUME 95.3 fL (80-94); MONOCYTES # (AUTO) 0.8 K/uL (0.8-1.0); MONOCYTES % (AUTO) 12.4 % (1.7-9.3); NEUTROPHILS # (AUTO) 4.1 K/uL (1.8-7.7); NEUTROPHILS % (AUTO) 64.7 % (42.2-75.2); PLATELET COUNT (AUTO) 218 K/uL (140-450); RED BLOOD CELL COUNT(AUTO) 3.34 MIL/uL (4.20-6.10); WHITE BLOOD COUNT (AUTO) 6.3 K/uL (4.8-10.8)
--- NOTE | 2018-01-09 07:32 | NUR ---
RECEIVED PT FROM WAFER MACHINE OPERATOR NURSE, PT IS ASLEEP LYING ON THE BED WITH A TRACH TO O2 AT 6L, FALL PRECAUTION ENFORCED, BED IN LOW POSITION, SIDE RAILS ARE UP AND CALL LIGHT WITHIN REACH, YELLOW GOWN, YELLOW ARM BAND, YELLOW SIGN WERE PLACED. PT HAS AN IV LINE ON THE LEFT WRIST G. 22, WITH D5LR WITH POTASSIUM 20% AT 100ML/HR, INFUSING AND INTACT. PT IS FLACC-O AND APHASIC. RESPIRATIONS EVEN AND O2 SATURATION IS AT 99%. NO SIGN OF DISTRESS NOTED AND WILL CONTINUE TO MONITOR PT.
--- NOTE | 2018-01-09 07:40 | NUR ---
PATIENT RESTING BUT AWAKE. TRACH PATENT AND CLEAN. PATIENT ON AEROSOL, 6L, 28%. DRAINED DRAIN BAG. SXNED X2 FOR SMALL AMOUNT OF THICK WHITE SECRETIONS. VITALS STABLE AT 100%, 85, RATE OF 16, COARSE BREATH SOUNDS. Addendum: 01/09/18 at 0748 by Jeanie Anaya RT RATE OF 20, NOT 16.
--- NOTE | 2018-01-09 07:50 | NUR ---
PT WAS SUCTIONED AND V/S WERE TAKEN AND IS WITHIN NORMAL LIMITS. WILL CONTINUE TO MONITOR PT.
[2018-01-09 07:53] LABS: ALBUMIN 2.5 g/dL (3.4-5.0); ANION GAP 11.8 (8-16); CARBON DIOXIDE 25.9 mmol/L (21-32); CREATININE 0.6 mg/dL (0.7-1.3); POTASSIUM 3.7 mmol/L (3.5-5.1); TOTAL BILIRUBIN 0.4 mg/dL (0.0-1.0)
[2018-01-09 08:00] VITALS: BP 128/75
[2018-01-09] MEDS: OSELTAMIVIR PHOSPHATE 75 MG CAP PO SCH (10:22)
--- NOTE | 2018-01-09 10:22 | NUR ---
PT IS AWAKE AND TAMIFLU WAS GIVEN VIA G-TUBE, PT TOLERATED IT. WILL CONTINUE TO MONITOR PT.
--- NOTE | 2018-01-09 10:35 | NUR ---
PT WAS REPOSITIONED AND CLEANED, SUCTIONED SECRETIONS AND MADE COMFORTABLE. NO SIGN OF DISTRESS NOTED AND WILL CONTINUE TO MONITOR PT.
--- NOTE | 2018-01-09 11:34 | NUR ---
Ship Washer Note: I called patient's mother Evangelina Hurley , no answer, no option to leave message, will attempt to call her later. I faxed patient's medical information to [facility].
[2018-01-09 12:00] VITALS: BP 121/55
--- NOTE | 2018-01-09 14:19 | NUR ---
Bicycle Fitter Note: Per Dominguez from [facility] , patient may go to room 6B at their facility after 6pm, accepting physician is Nav Roblero.
--- NOTE | 2018-01-09 15:18 | NUR ---
1518 SPOKE WITH ROCK AT [facility] AND SCHEDULED [facility] TRANSPORT FOR SOFTWARE PUBLISHER AT 1800 TO TRANSPORT PT TO [facility]#[id number] PROVIDED PER LOREN KNIGHT AT [facility].
[2018-01-09 16:00] VITALS: BP 130/78
--- NOTE | 2018-01-09 16:27 | NUR ---
CALLED [facility] AND GAVE REPORT TO RNJAVON REGARDING THE PT, WILL BE PLACED IN RM 6B AND UNDER THE SERVICE OF ROSIBEL AMOS.
--- NOTE | 2018-01-09 16:39 | NUR ---
PT'S MOTHER WAS CALLED AND INFORMED THAT PT WILL BE TRANSFERRED AT 1800 TO [facility] AND MOTHER VERBALIZED UNDERSTANDING.
--- NOTE | 2018-01-09 16:43 | NUR ---
CALLED DR. CRAWLEY AND ASKED MD IF PT IS GOING TO BE DISCHARGE WITH THE NG TUBE AND DR. CRAWLEY SAID TO REMOVE NG TUBE AND FEEDING SHOULD BE VIA THE PEG/G-TUBE. ACKNOWLEDGED AND INFORMED CHARGE NURSE, KAPIL.
--- NOTE | 2018-01-09 16:55 | NUR ---
PT NG TUBE WAS REMOVED BY CHARGE NURSE, KAPIL, NO SIGN OF DISTRESS NOTED.
--- NOTE | 2018-01-09 17:15 | NUR ---
PT'S ROCEPHIN WAS GIVEN VIA IV PB AND PT TOLERATED IT. WILL MONITOR PT.
--- NOTE | 2018-01-09 18:15 | NUR ---
DISCHARGED PT VIA GURNEY WITH [facility]ERSON[facility]EL, IV LINES AND ARM BANDS REMOVED AND GAVE REPORT TO [facility]ERSON[facility]. PT'S VITALS ARE STABLE AT THIS TIME.
== END 2018-01-09 18:15 | DRG 720 ==
LOC: MED 01:47 → MTU 05:16
PROVIDERS: ADMIT Hospitalist; ATTEND Hospitalist
DX: A41.9 Sepsis, unspecified organism (principal); J69.0 Pneumonitis due to inhalation of food and vomit; G93.40 Encephalopathy, unspecified; J96.10 Chronic respiratory failure, unspecified whether with hypoxia or hypercapnia; K56.609 Unspecified intestinal obstruction, unspecified as to partial versus complete obstruction; J15.6 Pneumonia due to other Gram-negative bacteria; G40.909 Epilepsy, unspecified, not intractable, without status epilepticus; I10 Essential (primary) hypertension; J44.0 Chronic obstructive pulmonary disease with (acute) lower respiratory infection; N20.0 Calculus of kidney; R13.10 Dysphagia, unspecified; J10.1 Influenza due to other identified influenza virus with other respiratory manifestations; E83.42 Hypomagnesemia; R53.2 Functional quadriplegia; Z93.0 Tracheostomy status; Z93.1 Gastrostomy status; Z87.891 Personal history of nicotine dependence; Z98.2 Presence of cerebrospinal fluid drainage device; Z87.440 Personal history of urinary (tract) infections; Z79.899 Other long term (current) drug therapy
CPT/HCPCS: 36415; 71045; 74018; 74250; 80048; 80053; 80202; 81003; 83605; 83690; 83735; 84100; 85025; 85610; 87040; 87070; 87081; 87086; 87186; 87205; 87804; 89220; 96361; 96365; 96375; 99291; C1758; J0696; J1956; J2405; J2543; J3370; J3480; J7030; J7060; Q0092

== ENCOUNTER 2023-09-19 16:06 | Inpatient (IN) | payer OTHER ==
[~2023-09-19] VITALS: Ht 172.7 cm; Wt 103.0 kg
[2023-09-19 16:06] VITALS: BP 98/50; PULSE 69; RESP 18; TEMP 99; O2SAT 90
[~2023-09-19 16:06] MED LIST changes: -ACET-8331 GT; +ALBU0.0912 INH; -ALBU3SOL83 IH; +ASCO500T95 PEG; +ATRMDI IH; -BISA5ECT43 RC; -CEFE2SOL IV; +CHLO473S62 PO; +DOCU-299 PEG; -HYDR-3229 GT; -HYDR-5122 GT; +LACT-191 PEG; -LACT10CA PO; -LORA2SOL IJ; -LOV40I SUBQ; -MAGN400S60 PO; -METO-460 GT; +METO100T22 GT; -METO100T98 GT; -METR500S14 IV; -MORP1SOL IV; -MORP1SYR3 IV; +MULT-492 PEG; -MULT5SOL7 GT; +NITR2OIN30 TD; +NUTR887L4 GT; -ONDA2SOL74 IJ; -PRON INH; +ROC1PM IV; +VALP-22 GT; -VANC750P10 IV; -ZGUARD TP; -[UNRECOGNIZED DRUG - CODE] GT; -[UNRECOGNIZED DRUG - CODE] IV
[2023-09-19 17:08] VITALS: PULSE 88; O2SAT 100
[2023-09-19 17:30] LABS: BASOPHILS % (AUTO) 0.4 % (0.0-2.0); EOSINOPHILS # (AUTO) 0.1 K/uL (0-0.4); EOSINOPHILS % (AUTO) 0.8 % (0.0-4.0); HEMATOCRIT 49.4 % (36-52); HEMOGLOBIN 16.3 g/dL (12.0-18.0); LYMPHOCYTES # (AUTO) 5.1 K/uL (2.0-11.5); LYMPHOCYTES % (AUTO) 49.8 % (20.5-51.1); MEAN CORPUSCULAR HEMOGLOBIN 32 pg (27-31); MEAN CORPUSCULAR HGB CONC 33 g/dL (33-37); MEAN CORPUSCULAR VOLUME 95.5 fL (80-94); MONOCYTES # (AUTO) 1.1 K/uL (0.8-1.0); MONOCYTES % (AUTO) 10.3 % (1.7-9.3); NEUTROPHILS % (AUTO) 38.7 % (42.2-75.2); PLATELET COUNT (AUTO) 171 K/uL (140-450); RED BLOOD CELL COUNT(AUTO) 5.17 MIL/uL (4.20-6.10); RED CELL DISTRIBUTION WIDTH 14.4 % (11.6-13.7); WHITE BLOOD COUNT (AUTO) 10.3 K/uL (4.8-10.8)
[2023-09-19] MEDS: LORazepam 2 MG/ML VIAL IVP ONE (17:35)
[2023-09-19] MEDS: NACL 0.9% 1,000 ML IV ONE (17:40)
[2023-09-19 17:47] LABS: ANION GAP 13.2 (8-16); CALCIUM 9.9 mg/dL (8.5-10.1); CARBON DIOXIDE 29.4 mmol/L (21-32); CREATININE 0.6 mg/dL (0.6-1.3); POTASSIUM 4.6 mmol/L (3.5-5.1)
[2023-09-19 17:49] LABS: INR 0.98 (0.8-1.2); PARTIAL THROMBOPLASTIN TIME 24.8 secs (22-35.6); PROTHROMBIN TIME 10.3 secs (10.8-13.4)
[2023-09-19 17:53] LABS: ALANINE AMINOTRANSFERASE 32 U/L (12-78); ALKALINE PHOSPHATASE 124 U/L (50-136); ASPARTATE AMINOTRANSFERASE 39 U/L (15-37); BILIRUBIN,DIRECT 0.2 mg/dL (0.0-0.3); TOTAL BILIRUBIN 0.6 mg/dL (0.0-1.0); TOTAL PROTEIN, SERUM 8.6 g/dL (6.4-8.2)
[2023-09-19 18:07] LABS: LACTIC ACID 3.7 mmol/L (0.4-2.0)
[2023-09-19 19:49] LABS: APPEARANCE,URINE CLEAR (CLEAR); BILIRUBIN,URINE NEGATIVE (NEGATIVE); BLOOD, URINE NEGATIVE (NEGATIVE); COLOR,URINE YELLOW (YELLOW); LEUKOCYTE ESTERASE ,URINE NEGATIVE (NEGATIVE); NITRITE, URINE NEGATIVE (NEGATIVE); PH,URINE 8.5 (5.0-9.0); PROTEIN,URINE 1+ (NEGATIVE); UGLUCOSE TRACE (NEGATIVE)
[2023-09-19 20:35] VITALS: BP 97/60; PULSE 79; O2SAT 98
[2023-09-19] MEDS ORDERED: cefTRIAXone 1,000 MG VIAL ONE (21:11)
[2023-09-19] MEDS ORDERED: MORPHINE SULFATE 2 MG/ML SYR IVP PRN (22:35)
[2023-09-19] MEDS: NACL 0.9% 1,000 ML IV SCH (23:00)
[2023-09-19 23:45] VITALS: PULSE 71; O2SAT 99
[2023-09-20] VITALS (8 sets, daily range): BP systolic 107–174; BP diastolic 58–75; PULSE 67–94; RESP 18–20; TEMP 96.6–97.8; O2SAT 67–100
[2023-09-20] MEDS ORDERED: PIPERACILLIN/TAZOBACTAM 3.375 GM VIAL IV ONE (05:07)
[2023-09-20] MEDS: PIPERACILLIN/TAZOBACTAM 3.375 GM in DEXTROSE 5% 50 ML IV SCH (05:15)
[2023-09-20] MEDS ORDERED: LORazepam 2 MG/ML VIAL ONE (05:33)
[2023-09-20] MEDS: LORazepam 2 MG/ML VIAL IVP ONE (05:37)
[2023-09-20] MEDS ORDERED: LORazepam 2 MG/ML VIAL IVP PRN (05:50)
[2023-09-20] MEDS ORDERED: levETIRAcetam 100 MG/ML VIAL IV ONE (06:08)
[2023-09-20] MEDS: levETIRAcetam 1,000 MG in NACL 0.9% 100 ML IV SCH ×2 (06:18→21:55)
[2023-09-20 06:59] LABS: BASOPHILS % (AUTO) 0.7 % (0.0-2.0); EOSINOPHILS % (AUTO) 0.4 % (0.0-4.0); HEMATOCRIT 41.5 % (36-52); HEMOGLOBIN 14.2 g/dL (12.0-18.0); LYMPHOCYTES # (AUTO) 2.9 K/uL (2.0-11.5); MEAN CORPUSCULAR HEMOGLOBIN 33 pg (27-31); MEAN CORPUSCULAR HGB CONC 34 g/dL (33-37); MEAN CORPUSCULAR VOLUME 94.9 fL (80-94); MONOCYTES # (AUTO) 0.8 K/uL (0.8-1.0); MONOCYTES % (AUTO) 12.6 % (1.7-9.3); NEUTROPHILS # (AUTO) 2.7 K/uL (1.8-7.7); NEUTROPHILS % (AUTO) 42.3 % (42.2-75.2); PLATELET COUNT (AUTO) 141 K/uL (140-450); RED BLOOD CELL COUNT(AUTO) 4.38 MIL/uL (4.20-6.10); RED CELL DISTRIBUTION WIDTH 14.4 % (11.6-13.7); WHITE BLOOD COUNT (AUTO) 6.5 K/uL (4.8-10.8)
[2023-09-20 07:20] LABS: ALBUMIN 2.5 g/dL (3.4-5.0); CARBON DIOXIDE 26.5 mmol/L (21-32); CREATININE 0.7 mg/dL (0.6-1.3); MAGNESIUM 1.8 mg/dL (1.8-2.4); POTASSIUM 4.5 mmol/L (3.5-5.1); TOTAL BILIRUBIN 0.7 mg/dL (0.0-1.0); TOTAL PROTEIN, SERUM 7.1 g/dL (6.4-8.2)
[2023-09-20] MEDS: VALPROATE SODIUM 500 MG in NACL 0.9% 100 ML IV SCH (13:27)
[2023-09-20] MEDS: MEDS-TO-BEDS MC SCH (20:11)
[2023-09-21] VITALS (12 sets, daily range): BP systolic 116–133; BP diastolic 73–91; PULSE 66–109; RESP 18–20; TEMP 97.1–99.5; O2SAT 98–100
[2023-09-21] MEDS: ONDANSETRON 4 MG/2 ML VIAL IVP PRN (05:16)
[2023-09-21] MEDS ORDERED: NON-FORMULARY ITEM (Lactulose 30 ML) PEG SCH (09:00)
[2023-09-21] MEDS: LACTULOSE 20 GM/30 ML UDC GT SCH (10:23)
[2023-09-21] MEDS: METOPROLOL 50 MG TAB GT SCH (10:24)
[2023-09-21] MEDS: CRUSHER, PILL MC ONE (10:35)
[2023-09-21] MEDS ORDERED: VALPROIC ACID 250 MG/5 ML UDC GT SCH (13:00)
[2023-09-21] MEDS ORDERED: METOCLOPRAMIDE 10 MG/2 ML INJ VIAL IVP PRN (13:50)
[2023-09-21] MEDS: SODIUM PHOSPHATE 118 ML ENEM RC SCH (14:05)
[2023-09-21] MEDS ORDERED: ALBUTEROL SULFATE/IPRATROPIU 3 ML SOL IH PRN (14:35)
[2023-09-21] MEDS: DEXT 5% / NACL 0.45% 1,000 ML IV SCH (15:00)
[2023-09-21] MEDS: ALBUTEROL SULFATE/IPRATROPIU 3 ML SOL IH SCH (19:55)
[2023-09-22] VITALS (14 sets, daily range): BP systolic 98–130; BP diastolic 41–96; PULSE 69–91; RESP 18–19; TEMP 97.9–98.8; O2SAT 97–100
[2023-09-22] MEDS: ENOXAPARIN 40 MG/0.4 ML SYR SUBQ SCH (09:07)
[2023-09-22] MEDS: PANTOPRAZOLE 40 MG INJ VIAL IVP SCH (09:09)
[2023-09-22 10:15] LABS: BASOPHILS % (AUTO) 0.3 % (0.0-2.0); EOSINOPHILS # (AUTO) 0.1 K/uL (0-0.4); EOSINOPHILS % (AUTO) 0.9 % (0.0-4.0); HEMATOCRIT 43.4 % (36-52); HEMOGLOBIN 14.6 g/dL (12.0-18.0); LYMPHOCYTES # (AUTO) 3.2 K/uL (2.0-11.5); LYMPHOCYTES % (AUTO) 45.2 % (20.5-51.1); MEAN CORPUSCULAR HEMOGLOBIN 32 pg (27-31); MEAN CORPUSCULAR HGB CONC 34 g/dL (33-37); MEAN CORPUSCULAR VOLUME 95.6 fL (80-94); MONOCYTES # (AUTO) 0.9 K/uL (0.8-1.0); MONOCYTES % (AUTO) 12.4 % (1.7-9.3); NEUTROPHILS # (AUTO) 2.9 K/uL (1.8-7.7); NEUTROPHILS % (AUTO) 41.2 % (42.2-75.2); PLATELET COUNT (AUTO) 181 K/uL (140-450); RED BLOOD CELL COUNT(AUTO) 4.53 MIL/uL (4.20-6.10); RED CELL DISTRIBUTION WIDTH 14.6 % (11.6-13.7); WHITE BLOOD COUNT (AUTO) 7.1 K/uL (4.8-10.8)
[2023-09-22 10:26] LABS: ANION GAP 11.3 (8-16); CALCIUM 9.4 mg/dL (8.5-10.1); CARBON DIOXIDE 28.3 mmol/L (21-32); CREATININE 0.9 mg/dL (0.6-1.3); POTASSIUM 3.6 mmol/L (3.5-5.1)
[2023-09-22 10:48] LABS: MAGNESIUM 2.1 mg/dL (1.8-2.4); PHOSPHORUS 4.6 mg/dL (2.5-4.9)
[2023-09-22] MEDS: VALPROATE SODIUM 1,000 MG in NACL 0.9% 100 ML IV SCH (13:00)
[2023-09-23] VITALS (13 sets, daily range): BP systolic 69–133; BP diastolic 57–82; PULSE 44–102; RESP 18–30; TEMP 96.8–98.2; O2SAT 95–100
[2023-09-23 06:15] LABS: ANION GAP 10.6 (8-16); CREATININE 0.6 mg/dL (0.6-1.3); POTASSIUM 3.6 mmol/L (3.5-5.1)
[2023-09-23 06:16] LABS: BASOPHILS % (AUTO) 0.2 % (0.0-2.0); EOSINOPHILS # (AUTO) 0.1 K/uL (0-0.4); EOSINOPHILS % (AUTO) 1.8 % (0.0-4.0); HEMATOCRIT 40.1 % (36-52); HEMOGLOBIN 13.6 g/dL (12.0-18.0); LYMPHOCYTES # (AUTO) 2.9 K/uL (2.0-11.5); LYMPHOCYTES % (AUTO) 53.1 % (20.5-51.1); MEAN CORPUSCULAR HEMOGLOBIN 32 pg (27-31); MEAN CORPUSCULAR HGB CONC 34 g/dL (33-37); MEAN CORPUSCULAR VOLUME 94.9 fL (80-94); MONOCYTES # (AUTO) 0.6 K/uL (0.8-1.0); MONOCYTES % (AUTO) 11.4 % (1.7-9.3); NEUTROPHILS # (AUTO) 1.8 K/uL (1.8-7.7); NEUTROPHILS % (AUTO) 33.5 % (42.2-75.2); PLATELET COUNT (AUTO) 172 K/uL (140-450); RED BLOOD CELL COUNT(AUTO) 4.22 MIL/uL (4.20-6.10); RED CELL DISTRIBUTION WIDTH 14.3 % (11.6-13.7); WHITE BLOOD COUNT (AUTO) 5.4 K/uL (4.8-10.8)
[2023-09-23 06:27] LABS: MAGNESIUM 1.9 mg/dL (1.8-2.4); PHOSPHORUS 3.7 mg/dL (2.5-4.9)
[2023-09-23] MEDS ORDERED: VALP-22 GT (10:55)
[2023-09-24] VITALS (13 sets, daily range): BP systolic 91–126; BP diastolic 52–86; PULSE 52–109; RESP 17–23; TEMP 96.4–98.5; O2SAT 95–100
[2023-09-24 05:48] LABS: BASOPHILS % (AUTO) 0.1 % (0.0-2.0); EOSINOPHILS # (AUTO) 0.1 K/uL (0-0.4); EOSINOPHILS % (AUTO) 1.5 % (0.0-4.0); HEMATOCRIT 37.4 % (36-52); HEMOGLOBIN 12.9 g/dL (12.0-18.0); LYMPHOCYTES # (AUTO) 1.7 K/uL (2.0-11.5); LYMPHOCYTES % (AUTO) 43.3 % (20.5-51.1); MEAN CORPUSCULAR HEMOGLOBIN 32 pg (27-31); MEAN CORPUSCULAR HGB CONC 34 g/dL (33-37); MONOCYTES # (AUTO) 0.4 K/uL (0.8-1.0); MONOCYTES % (AUTO) 10.9 % (1.7-9.3); NEUTROPHILS # (AUTO) 1.8 K/uL (1.8-7.7); NEUTROPHILS % (AUTO) 44.2 % (42.2-75.2); PLATELET COUNT (AUTO) 160 K/uL (140-450); RED BLOOD CELL COUNT(AUTO) 4.02 MIL/uL (4.20-6.10); RED CELL DISTRIBUTION WIDTH 14.2 % (11.6-13.7)
[2023-09-24 05:52] LABS: ANION GAP 12.2 (8-16); CALCIUM 8.7 mg/dL (8.5-10.1); CREATININE 0.5 mg/dL (0.6-1.3); POTASSIUM 3.2 mmol/L (3.5-5.1)
[2023-09-24 07:13] LABS: MAGNESIUM 1.9 mg/dL (1.8-2.4); PHOSPHORUS 3.2 mg/dL (2.5-4.9)
[2023-09-24] MEDS: METOCLOPRAMIDE 10 MG/2 ML INJ VIAL IVP SCH (12:13)
[2023-09-24] MEDS: POTASSIUM CHLORIDE 20% 40 MEQ/15 ML UDC GT SCH (16:31)
[2023-09-25] VITALS (14 sets, daily range): BP systolic 92–130; BP diastolic 47–84; PULSE 74–112; RESP 17–24; TEMP 96.5–98.3; O2SAT 95–100
[2023-09-25 06:00] LABS: BASOPHILS % (AUTO) 0.2 % (0.0-2.0); EOSINOPHILS # (AUTO) 0.1 K/uL (0-0.4); EOSINOPHILS % (AUTO) 0.6 % (0.0-4.0); HEMATOCRIT 37.6 % (36-52); HEMOGLOBIN 12.9 g/dL (12.0-18.0); LYMPHOCYTES # (AUTO) 2.9 K/uL (2.0-11.5); LYMPHOCYTES % (AUTO) 31.7 % (20.5-51.1); MEAN CORPUSCULAR HEMOGLOBIN 33 pg (27-31); MEAN CORPUSCULAR HGB CONC 34 g/dL (33-37); MEAN CORPUSCULAR VOLUME 95.2 fL (80-94); MONOCYTES # (AUTO) 0.8 K/uL (0.8-1.0); MONOCYTES % (AUTO) 9.4 % (1.7-9.3); NEUTROPHILS # (AUTO) 5.3 K/uL (1.8-7.7); NEUTROPHILS % (AUTO) 58.1 % (42.2-75.2); PLATELET COUNT (AUTO) 216 K/uL (140-450); RED BLOOD CELL COUNT(AUTO) 3.95 MIL/uL (4.20-6.10); RED CELL DISTRIBUTION WIDTH 14.7 % (11.6-13.7)
[2023-09-25 06:34] LABS: ANION GAP 9.3 (8-16); CALCIUM 8.9 mg/dL (8.5-10.1); CARBON DIOXIDE 29.7 mmol/L (21-32); CREATININE 0.7 mg/dL (0.6-1.3)
[2023-09-25 06:37] LABS: MAGNESIUM 1.7 mg/dL (1.8-2.4); PHOSPHORUS 3.6 mg/dL (2.5-4.9)
[2023-09-26] VITALS (15 sets, daily range): BP systolic 110–128; BP diastolic 60–71; PULSE 86–117; RESP 18–22; TEMP 96.9–98.6; O2SAT 96–100
[2023-09-26] MEDS: ACETAMINOPHEN 325 MG TAB PO PRN (02:50)
[2023-09-26 05:39] LABS: BASOPHILS % (AUTO) 0.5 % (0.0-2.0); EOSINOPHILS # (AUTO) 0.2 K/uL (0-0.4); EOSINOPHILS % (AUTO) 3.4 % (0.0-4.0); HEMATOCRIT 37.7 % (36-52); HEMOGLOBIN 13.2 g/dL (12.0-18.0); LYMPHOCYTES # (AUTO) 1.6 K/uL (2.0-11.5); LYMPHOCYTES % (AUTO) 25.9 % (20.5-51.1); MEAN CORPUSCULAR HEMOGLOBIN 33 pg (27-31); MEAN CORPUSCULAR HGB CONC 35 g/dL (33-37); MONOCYTES # (AUTO) 0.9 K/uL (0.8-1.0); MONOCYTES % (AUTO) 14.7 % (1.7-9.3); NEUTROPHILS # (AUTO) 3.5 K/uL (1.8-7.7); NEUTROPHILS % (AUTO) 55.5 % (42.2-75.2); PLATELET COUNT (AUTO) 189 K/uL (140-450); RED BLOOD CELL COUNT(AUTO) 3.97 MIL/uL (4.20-6.10); RED CELL DISTRIBUTION WIDTH 14.2 % (11.6-13.7); WHITE BLOOD COUNT (AUTO) 6.3 K/uL (4.8-10.8)
[2023-09-26 05:48] LABS: ANION GAP 11.6 (8-16); CALCIUM 9.1 mg/dL (8.5-10.1); CREATININE 0.6 mg/dL (0.6-1.3); POTASSIUM 3.6 mmol/L (3.5-5.1)
[2023-09-26 05:50] LABS: MAGNESIUM 1.7 mg/dL (1.8-2.4); PHOSPHORUS 3.5 mg/dL (2.5-4.9)
[2023-09-26] MEDS ORDERED: METO-485 PO (14:56)
== END 2023-09-26 19:30 | DRG 130 ==
LOC: MED 16:06 → MMU 22:35 → MTU 09-20 06:53
PROVIDERS: ADMIT Hospitalist; ATTEND Hospitalist
PROC: 02HV33Z Insertion of Infusion Device into Superior Vena Cava, Percutaneous Approach (ICD-10-PCS; 2023-09-19)
PROC: 5A1955Z Respiratory Ventilation, Greater than 96 Consecutive Hours (ICD-10-PCS; principal; 2023-09-21)
PROC: 0DH63UZ Insertion of Feeding Device into Stomach, Percutaneous Approach (ICD-10-PCS; 2023-09-25)
PROC: 0DP6XUZ Removal of Feeding Device from Stomach, External Approach (ICD-10-PCS; 2023-09-25)
DX: J69.0 Pneumonitis due to inhalation of food and vomit (principal); G82.50 Quadriplegia, unspecified; K56.609 Unspecified intestinal obstruction, unspecified as to partial versus complete obstruction; R64 Cachexia; J96.11 Chronic respiratory failure with hypoxia; K94.23 Gastrostomy malfunction; Z20.822 Contact with and (suspected) exposure to COVID-19; I10 Essential (primary) hypertension; Z68.34 Body mass index [BMI] 34.0-34.9, adult; G40.802 Other epilepsy, not intractable, without status epilepticus; J44.0 Chronic obstructive pulmonary disease with (acute) lower respiratory infection; Z79.899 Other long term (current) drug therapy; Z87.820 Personal history of traumatic brain injury; Z79.51 Long term (current) use of inhaled steroids
CPT/HCPCS: 36415; 70450; 71045; 74018; 74250; 80048; 80053; 80076; 81003; 82140; 83605; 83735; 83880; 84100; 84484; 85025; 85610; 85730; 87040; 87081; 87086; 93005; 94002; 94003; 94640; 96361; 96365; 99291; J0696; J1650; J1953; J2060; J2270; J2405; J2470; J2543; J2765; J3490; J7060; Q0092; Q9967